=== PATIENT | female | born 1955 | race Caucasian/White ===

== ENCOUNTER 2021-05-22 06:47 | Inpatient (IN) | payer OTHER ==
[2021-05-22 07:01] LABS: Hemoglobin 14.9 g/dL (12.0-16.0); Mean Corpuscular HGB CONC 33.5 g/dL (32.0-36.0); Mean Corpuscular Hemoglobin 32.3 pg (27.0-31.0); Mean Corpuscular Volume 96.3 fL (78.0-98.0); Mean Platelet Volume 10.1 fL (7.4-10.4); Platelet Count 274 thou/uL (130-400); RBC Distribution Width 12.7 % (11.5-14.5); Red Blood Cell (RBC) Count 4.61 mill/uL (4.20-5.40); White Blood Cell (WBC) Count 25.8 thou/uL (4.8-10.8)
[2021-05-22 07:22] LABS: ALT (SGPT) 105 U/L (8-55); AST (SGOT) 134 U/L (5-34); Albumin 3.5 g/dL (3.4-4.8); Alkaline Phosphatase 119 U/L (40-110); Anion Gap 22 mmol/L (10-20); BUN (Urea Nitrogen) 69 mg/dL (9.8-20.1); Bilirubin, Total 1.2 mg/dL (0.2-1.2); Calc. Creatinine Clearance 0 mL/min (70-130); Calcium 8.7 mg/dL (7.8-10.44); Carbon Dioxide 20 mmol/L (23-31); Chloride 99 mmol/L (98-107); Globulin 3.8 g/dL (2.4-3.5); Glucose 115 mg/dL (80-115); Protein, Total 7.3 g/dL (5.8-8.1); Sodium 136 mmol/L (136-145)
[2021-05-22 07:22] LABS: Actual Bicarbonate (HCO3a) 18.2 mEq/L (22-28); Analyzer IN Cardio ER; Base Excess (BEa) -10.9 mEq/L (-2.0 to +3.0); CO2 Tension 52.5 mmHg (35.0-45.0); Calcium, Ionized (arterial) 1.13 mmol/L (1.12-1.30); Carboxyhemoglobin (COHb) 1.3 gm% (0.0-3.0); Hemoglobin (Hb) 15.3 g/dL (12.0-16.0); O2 Tension (PaO2), arterial 66.2 mmHg (> 80.0); Potassium - ABG Lab 4.07 mmol/L (3.70-5.30)
[2021-05-22 07:23] LABS: pH, Arterial 7.16 (7.35-7.45)
[2021-05-22 07:24] LABS: ALV-art Gradient 438.575 mmHg (0-20); Puncture Site RBA
[2021-05-22 07:27] LABS: INR-International Normal Ratio 1.2; PTT 26.8 sec (22.9-36.1); Prothrombin Time 14.8 sec (12.0-14.7)
[2021-05-22 07:32] LABS: Band 25 % (5-11); Lymphocytes 6 % (21-51); MDiff Complete? YES; Monocytes 5 % (0-10); Myelocyte 1 % (0-0); Neutrophil 62 % (42-75); Platelet Morphology Comment Appears Adequate; Polychromasia SLIGHT = 2-3 cells (100X) (0-2/hpf); Reactive Lymphocytes 1 % (0-10)
[2021-05-22] MEDS ORDERED: Vancomycin 1 GM/200 ML BAG ONE (07:40)
[2021-05-22] MEDS ORDERED: Cefepime 2 GM VIAL ONE ×2 (07:41→20:31)
[2021-05-22 07:42] LABS: CKMB 5.6 ng/mL (0-6.6)
[2021-05-22] MEDS ORDERED: Fentanyl CADD 100 ML IV SCH (07:45)
[2021-05-22] MEDS ORDERED: Norepinephrine 8 MG/0.9% NS 250 ML ONE (07:49)
[2021-05-22 07:56] LABS: SARS-CoV-2 NAA Rapid Test Not Detected (NotDetected)
[2021-05-22 08:45] LABS: Bacteria/HPF None Seen HPF (None Seen); Bilirubin Negative (Negative); Blood, Urine 1+ (Negative); Clarity Turbid (Clear); Glucose, Urine (Dipstick) Normal (Negative); Ketone, Urine Trace mg/dL (Negative); Leukocyte Negative Leu/uL (Negative); Nitrite Negative (Negative); Protein, Urine (Dipstick) 30 mg/dL (Neg-Trace); RBC/HPF 0-3 HPF (0-3); Specific Gravity, Urine 1.023 (1.002-1.036); Squamous Epithelial 0-3 HPF (0-3); Urobilinogen Normal mg/dL (Less than 2); WBC/HPF 0-3 HPF (0-3)
[2021-05-22] MEDS ORDERED: Naloxone HCl 0.4 mg/ml Vial ONE (09:35)
[2021-05-22] MEDS ORDERED: Naloxone HCl 2 mg/2 ml Syringe ONE (09:57)
[2021-05-22] MEDS ORDERED: Ventilator Sedation Protocol 1 EACH FS SCH (20:11)
[2021-05-22] MEDS ORDERED: Ondansetron PF 4 MG/2 ML Vial IVP PRN (20:11)
[2021-05-22] MEDS ORDERED: Fentanyl BOLUS 250 ML IVPB PRN (20:30)
[2021-05-22] MEDS ORDERED: Propofol BOLUS 1,000 MG/100 ML VIAL IV PRN (20:30)
[2021-05-22] MEDS ORDERED: DISCONTINUE PREVIOUS NARCOTIC PAIN MEDICATIONS AND BENZODIAZEPINES FS SCH (20:30)
[2021-05-22] MEDS ORDERED: Propofol 1,000 MG/100 ML VIAL IV ONE (20:33)
[2021-05-22] MEDS: Propofol 1,000 MG/100 ML VIAL IV PRN (21:12)
[2021-05-22] MEDS: Lactated Ringer's 1,000 ML IV SCH (21:25)
[2021-05-22] MEDS ORDERED: Heparin 10,000 UNITS/ 10 ML VIAL ONE (21:26)
[2021-05-22 21:39] LABS: Troponin I 1.491 ng/mL (< 0.028)
[2021-05-22] MEDS ORDERED: [UNRECOGNIZED DRUG - REMARK] IVPB PRN (22:43)
[2021-05-22] MEDS: Fentanyl CADD 100 ML IV SCH (22:58)
[2021-05-22] MEDS: Heparin 5,000 UNITS/ML VIAL SC SCH (23:16)
[2021-05-23 01:26] LABS: Vancomycin, Random 9.8 ug/mL (See Comment)
[2021-05-23 01:38] LABS: Critical Call Chem Troponin I RESULT DECREASING; Troponin I 1.365 ng/mL (< 0.028)
[2021-05-23] MEDS ORDERED: Sodium Chloride 0.9% 15 ML NEB ONE (01:43)
[2021-05-23] MEDS ORDERED: VANCOMYCIN 1.25 GM/250 ML BAG 1.25 GM in Premix Bag 1 BAG IVPB SCH (02:00)
[2021-05-23] MEDS: Norepinephrine 8 MG/0.9% NS 250 ML IVPB SCH ×2 (03:17→16:07)
[2021-05-23 06:10] LABS: Band 30 % (5-11); Eosinophils 1 % (0-10); Lymphocytes 3 % (21-51); MDiff Complete? YES; Mean Corpuscular HGB CONC 31.7 g/dL (32.0-36.0); Mean Corpuscular Hemoglobin 30.4 pg (27.0-31.0); Mean Corpuscular Volume 95.9 fL (78.0-98.0); Mean Platelet Volume 10.4 fL (7.4-10.4); Monocytes 1 % (0-10); Neutrophil 65 % (42-75); Platelet Count 193 thou/uL (130-400); Platelet Morphology Comment Appears Adequate; RBC Distribution Width 12.8 % (11.5-14.5); Red Blood Cell (RBC) Count 3.96 mill/uL (4.20-5.40); White Blood Cell (WBC) Count 25.5 thou/uL (4.8-10.8)
[2021-05-23 06:12] LABS: Anion Gap 16 mmol/L (10-20); BUN (Urea Nitrogen) 65 mg/dL (9.8-20.1); Calc. Creatinine Clearance 31 mL/min (70-130); Calcium 8.4 mg/dL (7.8-10.44); Carbon Dioxide 20 mmol/L (23-31); Chloride 107 mmol/L (98-107); Glucose 136 mg/dL (80-115); Potassium 4.1 mmol/L (3.5-5.1); Sodium 139 mmol/L (136-145)
[2021-05-23] MEDS ORDERED: Fentanyl CADD 100 ML ONE (06:29)
[2021-05-23 06:32] LABS: Critical Call Chem Troponin I RESULT DECREASING; Troponin I 1.361 ng/mL (< 0.028)
[2021-05-23] MEDS: Lactated Ringer's 1,000 ML IV SCH ×3 (07:07→18:28)
[2021-05-23] MEDS: Cefepime 1 GM in Sodium Chloride 0.9% 100 ML IVPB SCH (09:05)
[2021-05-23] MEDS: Heparin 5,000 UNITS/ML VIAL SC SCH ×2 (09:06→21:06)
[2021-05-23] MEDS: Propofol 1,000 MG/100 ML VIAL IV PRN (10:42)
[2021-05-23 13:41] LABS: Actual Bicarbonate (HCO3a) 21.6 mEq/L (22-28); CO2 Tension 41.6 mmHg (35.0-45.0); Calcium, Ionized (arterial) 1.17 mmol/L (1.12-1.30); Carboxyhemoglobin (COHb) 0.3 gm% (0.0-3.0); Hemoglobin (Hb) 12.7 g/dL (12.0-16.0); O2 Tension (PaO2), arterial 85.4 mmHg (> 80.0); Potassium - ABG Lab 3.35 mmol/L (3.70-5.30); pH, Arterial 7.33 (7.35-7.45)
[2021-05-23 13:43] LABS: Puncture Site RRA
[2021-05-23] MEDS ORDERED: Sodium Chloride 0.9% 1,000 ML IV SCH (14:15)
[2021-05-23] MEDS: Lorazepam 2 MG/ML VIAL SLOW IVP PRN (15:03)
[2021-05-23] MEDS ORDERED: Aspirin Chewable 81 MG TAB PO SCH (19:00)
[2021-05-23] MEDS ORDERED: Atorvastatin Calcium 40 MG TAB PO SCH (19:00)
[2021-05-23] MEDS ORDERED: Famotidine/PF 20 mg/2ml Vial SLOW IVP SCH (21:00)
[2021-05-24 01:38] LABS: Vancomycin, Random 14.2 ug/mL (See Comment)
[2021-05-24] MEDS ORDERED: Vancomycin 1 GM in Premix Bag 1 BAG IVPB SCH ×2 (02:00→03:00)
[2021-05-24] MEDS: Lactated Ringer's 1,000 ML IV SCH ×3 (02:34→11:34)
[2021-05-24] MEDS ORDERED: Fentanyl CADD 0 ML ONE (05:43)
[2021-05-24 06:44] LABS: Band 20 % (5-11); Hemoglobin 11.8 g/dL (12.0-16.0); Lymphocytes 4 % (21-51); MDiff Complete? YES; Mean Corpuscular HGB CONC 33.4 g/dL (32.0-36.0); Mean Corpuscular Hemoglobin 31.8 pg (27.0-31.0); Mean Corpuscular Volume 95.2 fL (78.0-98.0); Mean Platelet Volume 10.2 fL (7.4-10.4); Metamyelocyte 3 % (0-0); Monocytes 3 % (0-10); Neutrophil 70 % (42-75); Platelet Count 141 thou/uL (130-400); Platelet Morphology Comment Appears Adequate; RBC Distribution Width 12.6 % (11.5-14.5); RBC Morphology Normal; Red Blood Cell (RBC) Count 3.72 mill/uL (4.20-5.40); White Blood Cell (WBC) Count 19.7 thou/uL (4.8-10.8)
[2021-05-24 06:47] LABS: Anion Gap 11 mmol/L (10-20); BUN (Urea Nitrogen) 44 mg/dL (9.8-20.1); Calc. Creatinine Clearance 78 mL/min (70-130); Calcium 8.1 mg/dL (7.8-10.44); Carbon Dioxide 20 mmol/L (23-31); Chloride 112 mmol/L (98-107); Glucose 140 mg/dL (80-115); Potassium 3.7 mmol/L (3.5-5.1); Sodium 139 mmol/L (136-145)
[2021-05-24 07:19] LABS: Actual Bicarbonate (HCO3a) 21.5 mEq/L (22-28); Base Excess (BEa) -3.1 mEq/L (-2.0 to +3.0); Calcium, Ionized (arterial) 1.15 mmol/L (1.12-1.30); Carboxyhemoglobin (COHb) 0.1 gm% (0.0-3.0); Hemoglobin (Hb) 13.8 g/dL (12.0-16.0); O2 Tension (PaO2), arterial 84.3 mmHg (> 80.0); Potassium - ABG Lab 3.55 mmol/L (3.70-5.30); pH, Arterial 7.38 (7.35-7.45)
[2021-05-24 07:32] LABS: Puncture Site RRA
[2021-05-24] MEDS: Cefepime 1 GM in Sodium Chloride 0.9% 100 ML IVPB SCH (08:40)
[2021-05-24] MEDS: Heparin 5,000 UNITS/ML VIAL SC SCH ×2 (08:41→20:43)
[2021-05-24] MEDS: Aspirin Chewable 81 MG TAB PO SCH (08:42)
[2021-05-24] MEDS: Fentanyl CADD 100 ML IV SCH (10:18)
[2021-05-24] MEDS ORDERED: Fentanyl CADD 100 ML ONE (10:50)
[2021-05-24] MEDS: Sodium Chloride 0.9% 1,000 ML IV SCH (15:01)
[2021-05-24] MEDS: Atorvastatin Calcium 40 MG TAB PO SCH (20:42)
[2021-05-24] MEDS: Famotidine/PF 20 mg/2ml Vial SLOW IVP SCH (20:43)
[2021-05-24] MEDS ORDERED: Haloperidol Lactate 5 MG/ML VIAL IM SCH (22:00)
[2021-05-25 01:38] LABS: Vancomycin, Random 14.9 ug/mL (See Comment)
[2021-05-25] MEDS ORDERED: Fentanyl CADD 100 ML ONE ×3 (01:53→23:11)
[2021-05-25] MEDS: Fentanyl CADD 100 ML IV SCH ×2 (02:03→23:18)
[2021-05-25] MEDS: VANCOMYCIN 1.25 GM/250 ML BAG 1.25 GM in Premix Bag 1 BAG IVPB SCH (02:03)
[2021-05-25 04:32] LABS: Anion Gap 13 mmol/L (10-20); BUN (Urea Nitrogen) 31 mg/dL (9.8-20.1); Calc. Creatinine Clearance 118 mL/min (70-130); Calcium 7.9 mg/dL (7.8-10.44); Carbon Dioxide 20 mmol/L (23-31); Chloride 113 mmol/L (98-107); Glucose 125 mg/dL (80-115); Potassium 3.5 mmol/L (3.5-5.1); Sodium 142 mmol/L (136-145)
[2021-05-25] MEDS: Sodium Chloride 0.9% 1,000 ML IV SCH ×2 (04:38→19:32)
[2021-05-25 04:41] LABS: Band 25 % (5-11); Eosinophils 2 % (0-10); Hemoglobin 12.3 g/dL (12.0-16.0); Lymphocytes 3 % (21-51); MDiff Complete? YES; Mean Corpuscular HGB CONC 33.8 g/dL (32.0-36.0); Mean Corpuscular Hemoglobin 32.3 pg (27.0-31.0); Mean Corpuscular Volume 95.5 fL (78.0-98.0); Mean Platelet Volume 10.2 fL (7.4-10.4); Monocytes 6 % (0-10); Neutrophil 64 % (42-75); Platelet Count 152 thou/uL (130-400); Platelet Morphology Comment Appears Adequate; RBC Distribution Width 12.6 % (11.5-14.5); RBC Morphology Normal; Red Blood Cell (RBC) Count 3.82 mill/uL (4.20-5.40); White Blood Cell (WBC) Count 21.6 thou/uL (4.8-10.8)
[2021-05-25] MEDS: Lorazepam 2 MG/ML VIAL SLOW IVP PRN ×3 (07:36→19:26)
[2021-05-25 08:37] LABS: Actual Bicarbonate (HCO3a) 20.8 mEq/L (22-28); Base Excess (BEa) -2.6 mEq/L (-2.0 to +3.0); Calcium, Ionized (arterial) 1.11 mmol/L (1.12-1.30); Carboxyhemoglobin (COHb) 0.2 gm% (0.0-3.0); Hemoglobin (Hb) 13.3 g/dL (12.0-16.0); O2 Tension (PaO2), arterial 76.2 mmHg (> 80.0); Potassium - ABG Lab 3.69 mmol/L (3.70-5.30); pH, Arterial 7.43 (7.35-7.45)
[2021-05-25] MEDS: Aspirin Chewable 81 MG TAB PO SCH (08:49)
[2021-05-25] MEDS: Heparin 5,000 UNITS/ML VIAL SC SCH ×2 (08:50→19:26)
[2021-05-25] MEDS: Cefepime 1 GM in Sodium Chloride 0.9% 100 ML IVPB SCH (08:50)
[2021-05-25 08:58] LABS: Puncture Site LRA
[2021-05-25] MEDS: Famotidine/PF 20 mg/2ml Vial SLOW IVP SCH (19:26)
[2021-05-25] MEDS: Atorvastatin Calcium 40 MG TAB PO SCH (19:27)
[2021-05-26] MEDS: VANCOMYCIN 1.25 GM/250 ML BAG 1.25 GM in Premix Bag 1 BAG IVPB SCH (01:31)
[2021-05-26 05:05] LABS: Band 20 % (5-11); Eosinophils 1 % (0-10); Hemoglobin 12.3 g/dL (12.0-16.0); Lymphocytes 5 % (21-51); MDiff Complete? YES; Mean Corpuscular HGB CONC 33.7 g/dL (32.0-36.0); Mean Corpuscular Hemoglobin 32.2 pg (27.0-31.0); Mean Corpuscular Volume 95.4 fL (78.0-98.0); Mean Platelet Volume 10.2 fL (7.4-10.4); Metamyelocyte 1 % (0-0); Monocytes 12 % (0-10); Myelocyte 2 % (0-0); Neutrophil 58 % (42-75); Platelet Count 182 thou/uL (130-400); Platelet Morphology Comment Appears Adequate; RBC Distribution Width 12.6 % (11.5-14.5); RBC Morphology Normal; Reactive Lymphocytes 1 % (0-10); Red Blood Cell (RBC) Count 3.82 mill/uL (4.20-5.40); White Blood Cell (WBC) Count 18.6 thou/uL (4.8-10.8)
[2021-05-26 05:55] LABS: Anion Gap 11 mmol/L (10-20); BUN (Urea Nitrogen) 23 mg/dL (9.8-20.1); Calc. Creatinine Clearance 135 mL/min (70-130); Calcium 7.9 mg/dL (7.8-10.44); Carbon Dioxide 21 mmol/L (23-31); Chloride 114 mmol/L (98-107); Glucose 118 mg/dL (80-115); Sodium 143 mmol/L (136-145)
[2021-05-26] MEDS ORDERED: Electrolyte Replacement Protocol FS PRN (06:30)
[2021-05-26] MEDS ORDERED: Potassium Chloride 40 MEQ in Sodium Chloride 0.9% 250 ML 250 ML IVPB SCH ×3 (07:30→15:00)
[2021-05-26] MEDS ORDERED: Potassium Chloride 20 MEQ in Premix Bag 1 BAG IVPB SCH (08:15)
[2021-05-26] MEDS ORDERED: Fentanyl CADD 100 ML ONE ×2 (08:15→16:31)
[2021-05-26] MEDS ORDERED: Potassium Chloride 20 MEQ TAB PO SCH (08:15)
[2021-05-26] MEDS: Fentanyl CADD 100 ML IV SCH ×2 (08:19→16:48)
[2021-05-26] MEDS: Heparin 5,000 UNITS/ML VIAL SC SCH ×2 (08:20→19:39)
[2021-05-26] MEDS: Aspirin Chewable 81 MG TAB PO SCH (08:20)
[2021-05-26] MEDS: Cefepime 1 GM in Sodium Chloride 0.9% 100 ML IVPB SCH (08:20)
[2021-05-26 08:23] LABS: Actual Bicarbonate (HCO3a) 20.1 mEq/L (22-28); Base Excess (BEa) -3.3 mEq/L (-2.0 to +3.0); CO2 Tension 31.2 mmHg (35.0-45.0); Calcium, Ionized (arterial) 1.08 mmol/L (1.12-1.30); Carboxyhemoglobin (COHb) 0.4 gm% (0.0-3.0); Hemoglobin (Hb) 12.9 g/dL (12.0-16.0); O2 Tension (PaO2), arterial 64.9 mmHg (> 80.0); Potassium - ABG Lab 3.35 mmol/L (3.70-5.30); pH, Arterial 7.43 (7.35-7.45)
[2021-05-26 08:50] LABS: Puncture Site LRA
[2021-05-26] MEDS: Lorazepam 2 MG/ML VIAL SLOW IVP PRN ×5 (10:02→19:38)
[2021-05-26] MEDS: Sodium Chloride 0.9% 1,000 ML IV SCH ×2 (10:30→23:41)
[2021-05-26 12:36] LABS: Potassium 3.5 mmol/L (3.5-5.1)
[2021-05-26] MEDS: Famotidine/PF 20 mg/2ml Vial SLOW IVP SCH (19:38)
[2021-05-26] MEDS: Atorvastatin Calcium 40 MG TAB PO SCH (19:39)
[2021-05-27] MEDS ORDERED: Fentanyl CADD 100 ML ONE ×3 (01:06→19:31)
[2021-05-27] MEDS: Lorazepam 2 MG/ML VIAL SLOW IVP PRN ×5 (01:12→23:21)
[2021-05-27] MEDS: VANCOMYCIN 1.25 GM/250 ML BAG 1.25 GM in Premix Bag 1 BAG IVPB SCH (01:12)
[2021-05-27] MEDS: Fentanyl CADD 100 ML IV SCH ×3 (01:13→19:46)
[2021-05-27 01:43] LABS: Vancomycin, Trough 14.4 ug/mL
[2021-05-27 04:19] LABS: Band 6 % (5-11); Hemoglobin 11.9 g/dL (12.0-16.0); Lymphocytes 10 % (21-51); MDiff Complete? YES; Mean Corpuscular HGB CONC 32.8 g/dL (32.0-36.0); Mean Corpuscular Hemoglobin 31.3 pg (27.0-31.0); Mean Corpuscular Volume 95.5 fL (78.0-98.0); Monocytes 14 % (0-10); Neutrophil 70 % (42-75); Platelet Count 194 thou/uL (130-400); Platelet Morphology Comment Appears Adequate; RBC Distribution Width 12.7 % (11.5-14.5); RBC Morphology Normal; Red Blood Cell (RBC) Count 3.81 mill/uL (4.20-5.40); White Blood Cell (WBC) Count 16.5 thou/uL (4.8-10.8)
[2021-05-27 04:29] LABS: Anion Gap 12 mmol/L (10-20); BUN (Urea Nitrogen) 20 mg/dL (9.8-20.1); Calc. Creatinine Clearance 150 mL/min (70-130); Carbon Dioxide 19 mmol/L (23-31); Chloride 118 mmol/L (98-107); Glucose 123 mg/dL (80-115); Potassium 3.4 mmol/L (3.5-5.1); Sodium 146 mmol/L (136-145)
[2021-05-27] MEDS ORDERED: Potassium Chloride 40 MEQ in Sodium Chloride 0.9% 250 ML 250 ML IVPB SCH (08:00)
[2021-05-27 08:23] LABS: Actual Bicarbonate (HCO3a) 20.4 mEq/L (22-28); Base Excess (BEa) -4.1 mEq/L (-2.0 to +3.0); CO2 Tension 35.7 mmHg (35.0-45.0); Calcium, Ionized (arterial) 1.13 mmol/L (1.12-1.30); Carboxyhemoglobin (COHb) 0.8 gm% (0.0-3.0); Hemoglobin (Hb) 12.8 g/dL (12.0-16.0); O2 Tension (PaO2), arterial 78.1 mmHg (> 80.0); Potassium - ABG Lab 3.38 mmol/L (3.70-5.30); pH, Arterial 7.38 (7.35-7.45)
[2021-05-27 08:24] LABS: ALV-art Gradient 162.475 mmHg (0-20); Puncture Site RRA
[2021-05-27] MEDS: Aspirin Chewable 81 MG TAB PO SCH (09:26)
[2021-05-27] MEDS: Cefepime 1 GM in Sodium Chloride 0.9% 100 ML IVPB SCH (09:26)
[2021-05-27] MEDS: Heparin 5,000 UNITS/ML VIAL SC SCH ×2 (09:27→19:49)
[2021-05-27] MEDS: Sodium Chloride 0.9% 1,000 ML IV SCH (12:14)
[2021-05-27 12:55] LABS: Potassium 3.9 mmol/L (3.5-5.1)
[2021-05-27] MEDS: Metoclopramide HCl 10 MG/2 ML VIAL IVP SCH ×2 (12:58→20:22)
[2021-05-27] MEDS: Morphine 2 MG/ML VIAL SLOW IVP PRN (14:58)
[2021-05-27] MEDS: Atorvastatin Calcium 40 MG TAB PO SCH (19:48)
[2021-05-27] MEDS ORDERED: Famotidine/PF 20 mg/2ml Vial SLOW IVP SCH (21:00)
[2021-05-28] MEDS: VANCOMYCIN 1.25 GM/250 ML BAG 1.25 GM in Premix Bag 1 BAG IVPB SCH (02:34)
[2021-05-28 04:03] LABS: Hemoglobin 11.7 g/dL (12.0-16.0); Mean Corpuscular Hemoglobin 31.5 pg (27.0-31.0); Mean Corpuscular Volume 95.6 fL (78.0-98.0); Mean Platelet Volume 9.6 fL (7.4-10.4); Platelet Count 191 thou/uL (130-400); RBC Distribution Width 12.7 % (11.5-14.5); Red Blood Cell (RBC) Count 3.71 mill/uL (4.20-5.40); White Blood Cell (WBC) Count 17.5 thou/uL (4.8-10.8)
[2021-05-28 04:09] LABS: Anion Gap 13 mmol/L (10-20); BUN (Urea Nitrogen) 17 mg/dL (9.8-20.1); Calc. Creatinine Clearance 152 mL/min (70-130); Calcium 7.7 mg/dL (7.8-10.44); Carbon Dioxide 18 mmol/L (23-31); Chloride 117 mmol/L (98-107); Glucose 127 mg/dL (80-115); Potassium 3.5 mmol/L (3.5-5.1); Sodium 144 mmol/L (136-145)
[2021-05-28] MEDS: Sodium Chloride 0.9% 1,000 ML IV SCH ×2 (04:13→19:15)
[2021-05-28] MEDS ORDERED: Fentanyl CADD 100 ML ONE ×2 (04:15→11:41)
[2021-05-28] MEDS: Fentanyl CADD 100 ML IV SCH ×2 (04:22→11:46)
[2021-05-28 04:31] LABS: Band 5 % (5-11); Lymphocytes 6 % (21-51); MDiff Complete? YES; Metamyelocyte 2 % (0-0); Monocytes 3 % (0-10); Myelocyte 3 % (0-0); Neutrophil 80 % (42-75); Platelet Morphology Comment Appears Adequate; RBC Morphology Normal; Reactive Lymphocytes 1 % (0-10)
[2021-05-28] MEDS: Metoclopramide HCl 10 MG/2 ML VIAL IVP SCH ×4 (05:26→20:21)
[2021-05-28 07:22] LABS: Actual Bicarbonate (HCO3a) 20.4 mEq/L (22-28); Base Excess (BEa) -3.7 mEq/L (-2.0 to +3.0); CO2 Tension 33.7 mmHg (35.0-45.0); Calcium, Ionized (arterial) 1.12 mmol/L (1.12-1.30); Carboxyhemoglobin (COHb) 0.4 gm% (0.0-3.0); Hemoglobin (Hb) 11.9 g/dL (12.0-16.0); O2 Tension (PaO2), arterial 66.6 mmHg (> 80.0); Potassium - ABG Lab 3.12 mmol/L (3.70-5.30)
[2021-05-28 07:23] LABS: ALV-art Gradient 176.475 mmHg (0-20); Puncture Site RRA
[2021-05-28] MEDS ORDERED: Potassium Chloride 40 MEQ in Sodium Chloride 0.9% 250 ML 250 ML IVPB SCH (08:00)
[2021-05-28] MEDS ORDERED: Furosemide 40 MG/4 ML VIAL SLOW IVP SCH (08:45)
[2021-05-28] MEDS: Aspirin Chewable 81 MG TAB PO SCH (09:04)
[2021-05-28] MEDS: Cefepime 1 GM in Sodium Chloride 0.9% 100 ML IVPB SCH (09:04)
[2021-05-28] MEDS: Heparin 5,000 UNITS/ML VIAL SC SCH ×2 (09:06→19:15)
[2021-05-28] MEDS: Famotidine 20 MG TAB PER TUBE SCH ×2 (09:06→19:17)
[2021-05-28] MEDS: Morphine 2 MG/ML VIAL SLOW IVP PRN ×4 (09:43→23:55)
[2021-05-28] MEDS: Lorazepam 2 MG/ML VIAL SLOW IVP PRN ×6 (09:44→23:56)
[2021-05-28] MEDS ORDERED: Vecuronium 10 MG VIAL ONE (14:15)
[2021-05-28 14:23] LABS: Potassium 3.8 mmol/L (3.5-5.1)
[2021-05-28] MEDS ORDERED: Vecuronium 10 MG VIAL IV SCH (15:30)
[2021-05-28] MEDS: fentaNYL 50 mcg/hour Patch TD SCH (16:45)
[2021-05-28] MEDS ORDERED: Potassium Chloride 20 MEQ TAB PO SCH (18:00)
[2021-05-28] MEDS: Atorvastatin Calcium 40 MG TAB PO SCH (19:17)
[2021-05-28] MEDS: Haloperidol Lactate 5 MG/ML VIAL IM SCH (20:21)
[2021-05-29] MEDS: Morphine 2 MG/ML VIAL SLOW IVP PRN ×2 (01:05→08:09)
[2021-05-29] MEDS: Lorazepam 2 MG/ML VIAL SLOW IVP PRN ×3 (01:05→20:34)
[2021-05-29] MEDS: VANCOMYCIN 1.25 GM/250 ML BAG 1.25 GM in Premix Bag 1 BAG IVPB SCH (01:21)
[2021-05-29 01:45] LABS: Vancomycin, Trough 15.6 ug/mL
[2021-05-29 04:19] LABS: Anion Gap 12 mmol/L (10-20); BUN (Urea Nitrogen) 15 mg/dL (9.8-20.1); Calc. Creatinine Clearance 144 mL/min (70-130); Calcium 7.5 mg/dL (7.8-10.44); Carbon Dioxide 20 mmol/L (23-31); Chloride 115 mmol/L (98-107); Glucose 106 mg/dL (80-115); Potassium 3.3 mmol/L (3.5-5.1); Sodium 144 mmol/L (136-145)
[2021-05-29] MEDS: Haloperidol Lactate 5 MG/ML VIAL IM SCH ×3 (04:42→20:10)
[2021-05-29 04:44] LABS: Band 14 % (5-11); Eosinophils 4 % (0-10); Lymphocytes 24 % (21-51); MDiff Complete? YES; Mean Corpuscular HGB CONC 32.3 g/dL (32.0-36.0); Mean Corpuscular Hemoglobin 30.5 pg (27.0-31.0); Mean Corpuscular Volume 94.5 fL (78.0-98.0); Mean Platelet Volume 9.9 fL (7.4-10.4); Monocytes 1 % (0-10); Neutrophil 57 % (42-75); Platelet Count 219 thou/uL (130-400); RBC Distribution Width 12.5 % (11.5-14.5); Red Blood Cell (RBC) Count 3.61 mill/uL (4.20-5.40); White Blood Cell (WBC) Count 17.5 thou/uL (4.8-10.8)
[2021-05-29] MEDS ORDERED: Furosemide 40 MG/4 ML VIAL SLOW IVP SCH (06:00)
[2021-05-29] MEDS ORDERED: Potassium Chloride 40 MEQ in Sodium Chloride 0.9% 250 ML 250 ML IVPB SCH (06:30)
[2021-05-29 07:26] LABS: Actual Bicarbonate (HCO3a) 21.5 mEq/L (22-28); Base Excess (BEa) -1.2 mEq/L (-2.0 to +3.0); CO2 Tension 29.7 mmHg (35.0-45.0); Calcium, Ionized (arterial) 1.06 mmol/L (1.12-1.30); Carboxyhemoglobin (COHb) 0.3 gm% (0.0-3.0); Hemoglobin (Hb) 11.5 g/dL (12.0-16.0); O2 Tension (PaO2), arterial 62.9 mmHg (> 80.0); Potassium - ABG Lab 2.92 mmol/L (3.70-5.30); pH, Arterial 7.48 (7.35-7.45)
[2021-05-29 07:30] LABS: Puncture Site RRA
[2021-05-29 07:31] LABS: ALV-art Gradient 185.175 mmHg (0-20)
[2021-05-29] MEDS: Cefepime 1 GM in Sodium Chloride 0.9% 100 ML IVPB SCH (08:38)
[2021-05-29] MEDS: Heparin 5,000 UNITS/ML VIAL SC SCH ×2 (08:38→20:10)
[2021-05-29] MEDS: Acetaminophen 325 MG TAB PO PRN ×2 (08:38→20:10)
[2021-05-29] MEDS: Famotidine 20 MG TAB PER TUBE SCH ×2 (08:39→20:10)
[2021-05-29] MEDS: Aspirin Chewable 81 MG TAB PO SCH (08:39)
[2021-05-29] MEDS: Sodium Chloride 0.9% 1,000 ML IV SCH ×2 (10:26→23:26)
[2021-05-29] MEDS: Furosemide 20 MG/2 ML VIAL SLOW IVP SCH (13:55)
[2021-05-29] MEDS: Metoclopramide HCl 10 MG/2 ML VIAL IVP SCH ×2 (13:55→20:10)
[2021-05-29] MEDS: Linezolid 600 MG in Premix Bag 1 BAG IVPB SCH (17:25)
[2021-05-29] MEDS ORDERED: Potassium Bicarbonate/Cit Ac 20 MEQ TAB PO SCH (18:00)
[2021-05-29] MEDS ORDERED: Potassium Chloride 20 MEQ TAB PO SCH (18:00)
[2021-05-29] MEDS: Atorvastatin Calcium 40 MG TAB PO SCH (20:10)
[2021-05-30] LABS: SARS-CoV-2 PCR by NAA Not Detected (NotDetected)
[2021-05-30] MEDS: Haloperidol Lactate 5 MG/ML VIAL IM SCH ×3 (03:18→19:50)
[2021-05-30 03:33] LABS: Hemoglobin 10.8 g/dL (12.0-16.0); Mean Corpuscular HGB CONC 33.6 g/dL (32.0-36.0); Mean Corpuscular Volume 95.3 fL (78.0-98.0); Platelet Count 280 thou/uL (130-400); RBC Distribution Width 12.8 % (11.5-14.5); Red Blood Cell (RBC) Count 3.37 mill/uL (4.20-5.40); White Blood Cell (WBC) Count 17.4 thou/uL (4.8-10.8)
[2021-05-30 03:47] LABS: Anion Gap 12 mmol/L (10-20); BUN (Urea Nitrogen) 17 mg/dL (9.8-20.1); Calc. Creatinine Clearance 130 mL/min (70-130); Calcium 7.3 mg/dL (7.8-10.44); Carbon Dioxide 24 mmol/L (23-31); Chloride 114 mmol/L (98-107); Glucose 93 mg/dL (80-115); Potassium 3.5 mmol/L (3.5-5.1); Sodium 146 mmol/L (136-145)
[2021-05-30 04:01] LABS: Band 3 % (5-11); Eosinophils 1 % (0-10); Lymphocytes 11 % (21-51); MDiff Complete? YES; Monocytes 5 % (0-10); Myelocyte 1 % (0-0); Neutrophil 79 % (42-75)
[2021-05-30] MEDS: Linezolid 600 MG in Premix Bag 1 BAG IVPB SCH (04:14)
[2021-05-30] MEDS: Sodium Chloride 0.9% 1,000 ML IV SCH (04:14)
[2021-05-30] MEDS: Morphine 2 MG/ML VIAL SLOW IVP PRN ×3 (04:14→18:49)
[2021-05-30] MEDS: Acetaminophen 325 MG TAB PO PRN ×2 (04:46→19:53)
[2021-05-30] MEDS: Furosemide 20 MG/2 ML VIAL SLOW IVP SCH ×2 (05:14→14:04)
[2021-05-30] MEDS: Metoclopramide HCl 10 MG/2 ML VIAL IVP SCH ×3 (05:15→21:56)
[2021-05-30] MEDS: Potassium Chloride 20 MEQ in Premix Bag 1 BAG IVPB SCH ×2 (05:19→07:04)
[2021-05-30 07:42] LABS: Actual Bicarbonate (HCO3a) 22.5 mEq/L (22-28); Base Excess (BEa) -0.2 mEq/L (-2.0 to +3.0); Calcium, Ionized (arterial) 1.02 mmol/L (1.12-1.30); Carboxyhemoglobin (COHb) 0.3 gm% (0.0-3.0); Hemoglobin (Hb) 10.1 g/dL (12.0-16.0); O2 Tension (PaO2), arterial 69.8 mmHg (> 80.0); pH, Arterial 7.49 (7.35-7.45)
[2021-05-30 07:46] LABS: Puncture Site RRA
[2021-05-30] MEDS: Aspirin Chewable 81 MG TAB PO SCH (09:15)
[2021-05-30] MEDS: Heparin 5,000 UNITS/ML VIAL SC SCH ×2 (09:15→19:52)
[2021-05-30] MEDS: Oxacillin 2 GM in Sodium Chloride 0.9% 100 ML IVPB SCH ×4 (09:15→19:43)
[2021-05-30] MEDS: Famotidine 20 MG TAB PER TUBE SCH ×2 (09:16→19:53)
[2021-05-30] MEDS: Cefepime 1 GM in Sodium Chloride 0.9% 100 ML IVPB SCH (09:30)
[2021-05-30] MEDS: Norepinephrine 8 MG/0.9% NS 250 ML IVPB SCH (12:00)
[2021-05-30] MEDS: Sodium Chloride 0.45% 1,000 ML IV SCH ×2 (18:36→19:49)
[2021-05-30] MEDS: Atorvastatin Calcium 40 MG TAB PO SCH (19:53)
[2021-05-31] MEDS: Oxacillin 2 GM in Sodium Chloride 0.9% 100 ML IVPB SCH ×6 (00:17→20:58)
[2021-05-31] MEDS: Haloperidol Lactate 5 MG/ML VIAL IM SCH ×3 (04:23→20:56)
[2021-05-31 04:37] LABS: Hemoglobin 10.9 g/dL (12.0-16.0); Mean Corpuscular Hemoglobin 31.7 pg (27.0-31.0); Mean Platelet Volume 9.2 fL (7.4-10.4); Platelet Count 366 thou/uL (130-400); RBC Distribution Width 12.8 % (11.5-14.5); Red Blood Cell (RBC) Count 3.43 mill/uL (4.20-5.40); White Blood Cell (WBC) Count 16.5 thou/uL (4.8-10.8)
[2021-05-31 04:44] LABS: ALT (SGPT) 26 U/L (8-55); AST (SGOT) 38 U/L (5-34); Alkaline Phosphatase 130 U/L (40-110); Anion Gap 11 mmol/L (10-20); BUN (Urea Nitrogen) 20 mg/dL (9.8-20.1); Bilirubin, Total 0.7 mg/dL (0.2-1.2); Calc. Creatinine Clearance 115 mL/min (70-130); Calcium 7.5 mg/dL (7.8-10.44); Carbon Dioxide 24 mmol/L (23-31); Chloride 112 mmol/L (98-107); Globulin 3.2 g/dL (2.4-3.5); Glucose 114 mg/dL (80-115); Magnesium 1.3 mg/dL (1.6-2.6); Phosphorus 2.9 mg/dL (2.3-4.7); Potassium 3.4 mmol/L (3.5-5.1); Protein, Total 5.2 g/dL (5.8-8.1); Sodium 144 mmol/L (136-145)
[2021-05-31] MEDS: Metoclopramide HCl 10 MG/2 ML VIAL IVP SCH ×3 (04:57→20:59)
[2021-05-31] MEDS: Furosemide 20 MG/2 ML VIAL SLOW IVP SCH ×2 (04:57→14:49)
[2021-05-31] MEDS ORDERED: Magnesium 2 GM/50 ML 2 GM in Premix Bag 1 BAG IVPB SCH (05:00)
[2021-05-31] MEDS: Potassium Chloride 20 MEQ in Premix Bag 1 BAG IVPB SCH ×2 (05:01→07:14)
[2021-05-31] MEDS: Magnesium 2 GM/50 ML 2 GM in Premix Bag 1 BAG IVPB SCH ×2 (05:01→06:03)
[2021-05-31 05:45] LABS: Band 12 % (5-11); Eosinophils 3 % (0-10); Lymphocytes 17 % (21-51); MDiff Complete? YES; Monocytes 2 % (0-10); Neutrophil 66 % (42-75)
[2021-05-31 07:13] LABS: Actual Bicarbonate (HCO3a) 23.2 mEq/L (22-28); Base Excess (BEa) 0.2 mEq/L (-2.0 to +3.0); Calcium, Ionized (arterial) 1.05 mmol/L (1.12-1.30); Carboxyhemoglobin (COHb) 0.3 gm% (0.0-3.0); Hemoglobin (Hb) 11.2 g/dL (12.0-16.0); O2 Tension (PaO2), arterial 70.6 mmHg (> 80.0); Potassium - ABG Lab 3.37 mmol/L (3.70-5.30); pH, Arterial 7.48 (7.35-7.45)
[2021-05-31 07:17] LABS: Puncture Site RRA
[2021-05-31] MEDS ORDERED: Iopamidol 370 76% 50 ML VIAL FS ONE (08:54)
[2021-05-31] MEDS ORDERED: Iopamidol-370 76% 500 ML 1 ML ONE (08:54)
[2021-05-31] MEDS: Lorazepam 2 MG/ML VIAL SLOW IVP PRN ×2 (09:35→16:35)
[2021-05-31] MEDS: Acetaminophen 325 MG TAB PO PRN (10:07)
[2021-05-31] MEDS: Famotidine 20 MG TAB PER TUBE SCH ×2 (10:07→20:59)
[2021-05-31] MEDS: Aspirin Chewable 81 MG TAB PO SCH (10:08)
[2021-05-31] MEDS: Heparin 5,000 UNITS/ML VIAL SC SCH ×2 (10:08→20:59)
[2021-05-31] MEDS: Morphine 2 MG/ML VIAL SLOW IVP PRN (16:54)
[2021-05-31] MEDS: fentaNYL 50 mcg/hour Patch TD SCH (17:28)
[2021-05-31] MEDS: Norepinephrine 8 MG/0.9% NS 250 ML IVPB SCH (17:43)
[2021-05-31] MEDS: Atorvastatin Calcium 40 MG TAB PO SCH (20:59)
[2021-05-31 23:47] LABS: SARS-CoV-2 NAA Rapid Test Not Detected (NotDetected)
[2021-06-01] MEDS: Oxacillin 2 GM in Sodium Chloride 0.9% 100 ML IVPB SCH ×6 (00:34→20:10)
[2021-06-01] MEDS: Acetaminophen 325 MG TAB PO PRN (01:16)
[2021-06-01 04:26] LABS: #Eosinphils 0.5 thou/uL (0.0-0.7); #Lymphocytes 1.4 thou/uL (1.20-3.40); #Monocytes 0.6 thou/uL (0.11-0.59); #Neutrophils 8.8 thou/uL (1.40-6.50); %Basophils 0.4 % (0.0-1.0); %Eosinophils 4.1 % (0.0-10.0); %Lymphocytes 12.3 % (21.0-51.0); %Monocytes 5.5 % (0.0-10.0); %Neutrophils 77.7 % (42.0-75.0); Hemoglobin 9.4 g/dL (12.0-16.0); Mean Corpuscular HGB CONC 33.6 g/dL (32.0-36.0); Mean Corpuscular Hemoglobin 32.1 pg (27.0-31.0); Mean Corpuscular Volume 95.5 fL (78.0-98.0); Mean Platelet Volume 9.2 fL (7.4-10.4); Platelet Count 297 thou/uL (130-400); RBC Distribution Width 12.9 % (11.5-14.5); Red Blood Cell (RBC) Count 2.92 mill/uL (4.20-5.40); White Blood Cell (WBC) Count 11.4 thou/uL (4.8-10.8)
[2021-06-01 04:35] LABS: ALT (SGPT) 19 U/L (8-55); AST (SGOT) 31 U/L (5-34); Albumin 1.8 g/dL (3.4-4.8); Alkaline Phosphatase 113 U/L (40-110); Anion Gap 11 mmol/L (10-20); BUN (Urea Nitrogen) 19 mg/dL (9.8-20.1); Bilirubin, Total 0.4 mg/dL (0.2-1.2); Calc. Creatinine Clearance 119 mL/min (70-130); Calcium 7.3 mg/dL (7.8-10.44); Carbon Dioxide 25 mmol/L (23-31); Chloride 109 mmol/L (98-107); Globulin 2.9 g/dL (2.4-3.5); Glucose 164 mg/dL (80-115); Magnesium 1.7 mg/dL (1.6-2.6); Potassium 3.1 mmol/L (3.5-5.1); Protein, Total 4.7 g/dL (5.8-8.1); Sodium 142 mmol/L (136-145)
[2021-06-01 04:37] LABS: Hemoglobin 7.4 g/dL (12.0-16.0); Mean Corpuscular HGB CONC 33.6 g/dL (32.0-36.0); Mean Corpuscular Volume 95.3 fL (78.0-98.0); Mean Platelet Volume 9.2 fL (7.4-10.4); Platelet Count 356 thou/uL (130-400); RBC Distribution Width 12.9 % (11.5-14.5); Red Blood Cell (RBC) Count 2.32 mill/uL (4.20-5.40); White Blood Cell (WBC) Count 12.7 thou/uL (4.8-10.8)
[2021-06-01 04:38] LABS: Phosphorus 2.5 mg/dL (2.3-4.7)
[2021-06-01] MEDS ORDERED: Magnesium 2 GM/50 ML 2 GM in Premix Bag 1 BAG IVPB SCH (05:00)
[2021-06-01] MEDS: Haloperidol Lactate 5 MG/ML VIAL IM SCH ×3 (05:00→20:10)
[2021-06-01] MEDS: Metoclopramide HCl 10 MG/2 ML VIAL IVP SCH ×3 (05:00→21:27)
[2021-06-01] MEDS: Potassium Chloride 20 MEQ in Premix Bag 1 BAG IVPB SCH ×2 (05:04→07:18)
[2021-06-01 05:05] LABS: Band 9 % (5-11); Eosinophils 4 % (0-10); Lymphocytes 18 % (21-51); MDiff Complete? YES; Metamyelocyte 1 % (0-0); Monocytes 3 % (0-10); Neutrophil 65 % (42-75)
[2021-06-01] MEDS: Furosemide 20 MG/2 ML VIAL SLOW IVP SCH ×2 (05:10→14:06)
[2021-06-01 07:57] LABS: Actual Bicarbonate (HCO3a) 23.9 mEq/L (22-28); Base Excess (BEa) 1.1 mEq/L (-2.0 to +3.0); CO2 Tension 31.6 mmHg (35.0-45.0); Calcium, Ionized (arterial) 1.09 mmol/L (1.12-1.30); Carboxyhemoglobin (COHb) 0.4 gm% (0.0-3.0); Hemoglobin (Hb) 10.4 g/dL (12.0-16.0); O2 Tension (PaO2), arterial 63.7 mmHg (> 80.0); Potassium - ABG Lab 3.43 mmol/L (3.70-5.30)
[2021-06-01 08:08] LABS: Puncture Site RRA
[2021-06-01] MEDS: Heparin 5,000 UNITS/ML VIAL SC SCH ×2 (08:22→20:10)
[2021-06-01] MEDS: Aspirin Chewable 81 MG TAB PO SCH (08:22)
[2021-06-01] MEDS: Famotidine 20 MG TAB PER TUBE SCH ×2 (08:22→20:11)
[2021-06-01] MEDS ORDERED: Meropenem 2 GM in Admixture Fee 1 EACH IVPB SCH (08:41)
[2021-06-01] MEDS ORDERED: Cefepime 2 GM in Sodium Chloride 0.9% 100 ML IVPB SCH (09:00)
[2021-06-01] MEDS ORDERED: MEROPENEM 1 GM/50 ML 1 GM in Premix Bag 1 BAG IVPB SCH ×2 (09:45→18:00)
[2021-06-01 11:26] LABS: Potassium 3.6 mmol/L (3.5-5.1)
[2021-06-01] MEDS: Albumin 25% 25 GM/100 ML BOT IVPB SCH ×3 (12:49→23:33)
[2021-06-01] MEDS ORDERED: Pantoprazole 40 MG VIAL IVP SCH (13:30)
[2021-06-01] MEDS ORDERED: Sodium Chloride 0.9% (PF) 10 ML VIAL FS PRN (13:30)
[2021-06-01] MEDS ORDERED: Vancomycin 1 GM in Premix Bag 1 BAG IVPB SCH (16:00)
[2021-06-01] MEDS ORDERED: Bacteriostatic Water 30 ML VIAL FS PRN (16:00)
[2021-06-01] MEDS: methylPREDNISolone Sod Succ 40 MG VIAL IVP SCH ×2 (16:36→21:27)
[2021-06-01] MEDS ORDERED: Potassium Chloride 20 MEQ TAB PO SCH (18:00)
[2021-06-01] MEDS ORDERED: methylPREDNISolone Sod Succ 40 MG VIAL IVP SCH (18:00)
[2021-06-01] MEDS: Atorvastatin Calcium 40 MG TAB PO SCH (20:10)
[2021-06-02] MEDS: Oxacillin 2 GM in Sodium Chloride 0.9% 100 ML IVPB SCH ×7 (01:00→23:52)
[2021-06-02 04:10] LABS: Anion Gap 12 mmol/L (10-20); BUN (Urea Nitrogen) 22 mg/dL (9.8-20.1); Calc. Creatinine Clearance 130 mL/min (70-130); Calcium 8.1 mg/dL (7.8-10.44); Carbon Dioxide 27 mmol/L (23-31); Chloride 107 mmol/L (98-107); Glucose 268 mg/dL (80-115); Magnesium 1.9 mg/dL (1.6-2.6); Potassium 4.4 mmol/L (3.5-5.1); Sodium 142 mmol/L (136-145)
[2021-06-02] MEDS: Haloperidol Lactate 5 MG/ML VIAL IM SCH ×3 (04:14→20:47)
[2021-06-02] MEDS: methylPREDNISolone Sod Succ 40 MG VIAL IVP SCH ×4 (04:14→22:01)
[2021-06-02 05:05] LABS: Band 19 % (5-11); Eosinophils 1 % (0-10); Hemoglobin 8.9 g/dL (12.0-16.0); Lymphocytes 5 % (21-51); MDiff Complete? YES; Mean Corpuscular HGB CONC 33.2 g/dL (32.0-36.0); Mean Corpuscular Hemoglobin 32.2 pg (27.0-31.0); Mean Corpuscular Volume 96.9 fL (78.0-98.0); Mean Platelet Volume 9.6 fL (7.4-10.4); Myelocyte 1 % (0-0); Neutrophil 74 % (42-75); Platelet Count 272 thou/uL (130-400); RBC Distribution Width 13.1 % (11.5-14.5); Red Blood Cell (RBC) Count 2.77 mill/uL (4.20-5.40); White Blood Cell (WBC) Count 7.2 thou/uL (4.8-10.8)
[2021-06-02] MEDS: Albumin 25% 25 GM/100 ML BOT IVPB SCH ×2 (05:07→12:22)
[2021-06-02] MEDS: Furosemide 20 MG/2 ML VIAL SLOW IVP SCH ×2 (05:08→14:27)
[2021-06-02] MEDS: Metoclopramide HCl 10 MG/2 ML VIAL IVP SCH ×3 (05:08→21:58)
[2021-06-02] MEDS ORDERED: Magnesium 2 GM/50 ML 2 GM in Premix Bag 1 BAG IVPB SCH (05:15)
[2021-06-02 06:46] LABS: Actual Bicarbonate (HCO3a) 25.6 mEq/L (22-28); Base Excess (BEa) 1.6 mEq/L (-2.0 to +3.0); Calcium, Ionized (arterial) 1.11 mmol/L (1.12-1.30); Carboxyhemoglobin (COHb) 0.3 gm% (0.0-3.0); Hemoglobin (Hb) 10.5 g/dL (12.0-16.0); O2 Tension (PaO2), arterial 78.5 mmHg (> 80.0); Potassium - ABG Lab 4.39 mmol/L (3.70-5.30); pH, Arterial 7.45 (7.35-7.45)
[2021-06-02 06:49] LABS: Puncture Site RRA
[2021-06-02] MEDS ORDERED: Potassium Chloride 20 MEQ TAB PO SCH (09:00)
[2021-06-02] MEDS: Pantoprazole 40 MG VIAL IVP SCH (09:15)
[2021-06-02] MEDS: Famotidine 20 MG TAB PER TUBE SCH ×2 (09:16→20:48)
[2021-06-02] MEDS: Heparin 5,000 UNITS/ML VIAL SC SCH ×2 (09:17→20:47)
[2021-06-02] MEDS: Aspirin Chewable 81 MG TAB PO SCH (09:17)
[2021-06-02] MEDS: Lorazepam 2 MG/ML VIAL SLOW IVP PRN (20:27)
[2021-06-02] MEDS: Atorvastatin Calcium 40 MG TAB PO SCH (20:48)
[2021-06-03] MEDS: Morphine 2 MG/ML VIAL SLOW IVP PRN ×8 (00:09→23:03)
[2021-06-03] MEDS: methylPREDNISolone Sod Succ 40 MG VIAL IVP SCH ×4 (03:47→22:02)
[2021-06-03] MEDS: Oxacillin 2 GM in Sodium Chloride 0.9% 100 ML IVPB SCH ×6 (03:47→23:19)
[2021-06-03] MEDS: Haloperidol Lactate 5 MG/ML VIAL IM SCH ×3 (03:47→20:12)
[2021-06-03 05:07] LABS: Anion Gap 16 mmol/L (10-20); BUN (Urea Nitrogen) 29 mg/dL (9.8-20.1); Calc. Creatinine Clearance 98 mL/min (70-130); Calcium 8.5 mg/dL (7.8-10.44); Carbon Dioxide 25 mmol/L (23-31); Chloride 104 mmol/L (98-107); Glucose 528 mg/dL (80-115); Sodium 141 mmol/L (136-145)
[2021-06-03] MEDS: Metoclopramide HCl 10 MG/2 ML VIAL IVP SCH ×3 (05:51→22:01)
[2021-06-03] MEDS: Furosemide 20 MG/2 ML VIAL SLOW IVP SCH (05:51)
[2021-06-03] MEDS: HumaLOG 300 UNITS/3 ML VIAL SC PRN ×5 (05:59→22:49)
[2021-06-03] MEDS ORDERED: Dextrose 50% Abboject 50 ML SYRINGE IVP PRN (06:00)
[2021-06-03] MEDS ORDERED: Dextrose 5% in Water 1,000 ML IV PRN (06:00)
[2021-06-03 07:25] LABS: Hemoglobin 8.6 g/dL (12.0-16.0); Mean Corpuscular HGB CONC 33.4 g/dL (32.0-36.0); Mean Corpuscular Hemoglobin 32.4 pg (27.0-31.0); Mean Corpuscular Volume 96.8 fL (78.0-98.0); Mean Platelet Volume 9.9 fL (7.4-10.4); Platelet Count 387 thou/uL (130-400); RBC Distribution Width 13.3 % (11.5-14.5); Red Blood Cell (RBC) Count 2.64 mill/uL (4.20-5.40); White Blood Cell (WBC) Count 11.3 thou/uL (4.8-10.8)
[2021-06-03 08:05] LABS: Band 8 % (5-11); Eosinophils 1 % (0-10); Lymphocytes 4 % (21-51); MDiff Complete? YES; Monocytes 7 % (0-10); Myelocyte 1 % (0-0); Neutrophil 79 % (42-75); Platelet Morphology Comment Appears Adequate; Polychromasia SLIGHT = 2-3 cells (100X) (0-2/hpf)
[2021-06-03] MEDS: Potassium Chloride 20 MEQ TAB PO SCH (09:41)
[2021-06-03] MEDS: Heparin 5,000 UNITS/ML VIAL SC SCH ×2 (09:42→20:15)
[2021-06-03] MEDS: Pantoprazole 40 MG VIAL IVP SCH (09:43)
[2021-06-03] MEDS: Aspirin Chewable 81 MG TAB PO SCH (09:43)
[2021-06-03] MEDS: Famotidine 20 MG TAB PER TUBE SCH (10:04)
[2021-06-03] MEDS ORDERED: Lantus 1000 UNITS/10 ML VIAL SC SCH (11:15)
[2021-06-03] MEDS: Lorazepam 2 MG/ML VIAL SLOW IVP PRN ×4 (15:22→23:19)
[2021-06-03] MEDS: fentaNYL 50 mcg/hour Patch TD SCH (16:27)
[2021-06-03] MEDS ORDERED: Fentanyl CADD 0 ML ONE (20:07)
[2021-06-03] MEDS: Atorvastatin Calcium 40 MG TAB PO SCH (20:13)
[2021-06-04] MEDS: Morphine 2 MG/ML VIAL SLOW IVP PRN ×2 (00:02→02:31)
[2021-06-04] MEDS: Lorazepam 2 MG/ML VIAL SLOW IVP PRN (02:31)
[2021-06-04] MEDS: Oxacillin 2 GM in Sodium Chloride 0.9% 100 ML IVPB SCH ×6 (03:50→23:40)
[2021-06-04] MEDS: Haloperidol Lactate 5 MG/ML VIAL IM SCH ×3 (04:10→20:14)
[2021-06-04] MEDS: methylPREDNISolone Sod Succ 40 MG VIAL IVP SCH ×4 (04:10→21:22)
[2021-06-04] MEDS: HumaLOG 300 UNITS/3 ML VIAL SC PRN ×4 (04:38→21:32)
[2021-06-04] MEDS: Metoclopramide HCl 10 MG/2 ML VIAL IVP SCH ×3 (05:30→21:23)
[2021-06-04 06:47] LABS: Mean Corpuscular HGB CONC 33.5 g/dL (32.0-36.0); Mean Corpuscular Hemoglobin 32.4 pg (27.0-31.0); Mean Corpuscular Volume 96.7 fL (78.0-98.0); Mean Platelet Volume 9.6 fL (7.4-10.4); Platelet Count 419 thou/uL (130-400); RBC Distribution Width 13.7 % (11.5-14.5); Red Blood Cell (RBC) Count 2.77 mill/uL (4.20-5.40); White Blood Cell (WBC) Count 8.9 thou/uL (4.8-10.8)
[2021-06-04 06:56] LABS: Anion Gap 13 mmol/L (10-20); BUN (Urea Nitrogen) 31 mg/dL (9.8-20.1); Calc. Creatinine Clearance 0 mL/min (70-130); Calcium 8.6 mg/dL (7.8-10.44); Carbon Dioxide 28 mmol/L (23-31); Chloride 109 mmol/L (98-107); Glucose 289 mg/dL (80-115); Potassium 3.9 mmol/L (3.5-5.1); Sodium 146 mmol/L (136-145)
[2021-06-04 07:41] LABS: Band 2 % (5-11); Lymphocytes 12 % (21-51); MDiff Complete? YES; Monocytes 4 % (0-10); Neutrophil 82 % (42-75); Polychromasia SLIGHT = 2-3 cells (100X) (0-2/hpf)
[2021-06-04] MEDS: Furosemide 20 MG/2 ML VIAL SLOW IVP SCH (09:33)
[2021-06-04] MEDS: Potassium Chloride 20 MEQ TAB PO SCH (09:33)
[2021-06-04] MEDS: Aspirin Chewable 81 MG TAB PO SCH (09:33)
[2021-06-04] MEDS: Pantoprazole 40 MG VIAL IVP SCH (09:34)
[2021-06-04] MEDS: Heparin 5,000 UNITS/ML VIAL SC SCH ×2 (09:38→21:23)
[2021-06-04] MEDS: Lantus 1000 UNITS/10 ML VIAL SC SCH (09:42)
[2021-06-04] MEDS ORDERED: Midazolam HCl 2 mg/2 ml Vial ONE (11:37)
[2021-06-04] MEDS ORDERED: Fentanyl 100 MCG/2 ML VIAL ONE (11:37)
[2021-06-04] MEDS ORDERED: Bupivacaine PF 0.5% 30 ML VIAL ONE (11:42)
[2021-06-04] MEDS ORDERED: Lidocaine 1% w/Epinephrine 1:100K 30 ML VIAL ONE (11:42)
[2021-06-04] MEDS ORDERED: Ondansetron PF 4 MG/2 ML Vial ONE (12:07)
[2021-06-04] MEDS ORDERED: Rocuronium Bromide 10 MG/ML (10ML VIAL) ONE (12:07)
[2021-06-04] MEDS ORDERED: ePHEDrine 50 MG/ML VIAL ONE (12:07)
[2021-06-04] MEDS ORDERED: Dexamethasone 20 MG/5 ML VIAL ONE (12:07)
[2021-06-04] MEDS: Atorvastatin Calcium 40 MG TAB PO SCH (21:22)
[2021-06-05] MEDS: methylPREDNISolone Sod Succ 40 MG VIAL IVP SCH ×4 (03:07→21:11)
[2021-06-05] MEDS: Oxacillin 2 GM in Sodium Chloride 0.9% 100 ML IVPB SCH ×5 (03:08→19:52)
[2021-06-05] MEDS: Haloperidol Lactate 5 MG/ML VIAL IM SCH ×2 (03:08→11:21)
[2021-06-05 04:07] LABS: Band 2 % (5-11); Hemoglobin 9.3 g/dL (12.0-16.0); Hypochromia SLIGHT = 6-15 cells (100X) (0-5/hpf); Lymphocytes 6 % (21-51); MDiff Complete? YES; Mean Corpuscular HGB CONC 33.2 g/dL (32.0-36.0); Mean Corpuscular Hemoglobin 32.3 pg (27.0-31.0); Mean Corpuscular Volume 97.4 fL (78.0-98.0); Mean Platelet Volume 9.6 fL (7.4-10.4); Monocytes 4 % (0-10); Neutrophil 88 % (42-75); Platelet Count 377 thou/uL (130-400); Platelet Morphology Comment Appears Adequate; Red Blood Cell (RBC) Count 2.89 mill/uL (4.20-5.40); White Blood Cell (WBC) Count 6.7 thou/uL (4.8-10.8)
[2021-06-05 04:11] LABS: Anion Gap 13 mmol/L (10-20); BUN (Urea Nitrogen) 31 mg/dL (9.8-20.1); Calc. Creatinine Clearance 128 mL/min (70-130); Calcium 8.6 mg/dL (7.8-10.44); Carbon Dioxide 30 mmol/L (23-31); Chloride 107 mmol/L (98-107); Glucose 299 mg/dL (80-115); Potassium 4.2 mmol/L (3.5-5.1); Sodium 146 mmol/L (136-145)
[2021-06-05] MEDS: HumaLOG 300 UNITS/3 ML VIAL SC PRN ×4 (04:29→21:14)
[2021-06-05] MEDS: Metoclopramide HCl 10 MG/2 ML VIAL IVP SCH ×3 (05:03→21:11)
[2021-06-05] MEDS: Heparin 5,000 UNITS/ML VIAL SC SCH ×2 (08:49→21:11)
[2021-06-05] MEDS: Aspirin Chewable 81 MG TAB PO SCH (08:50)
[2021-06-05] MEDS: Potassium Chloride 20 MEQ TAB PO SCH (08:50)
[2021-06-05] MEDS: Furosemide 20 MG/2 ML VIAL SLOW IVP SCH (08:50)
[2021-06-05] MEDS: Lantus 1000 UNITS/10 ML VIAL SC SCH (08:51)
[2021-06-05] MEDS: Pantoprazole 40 MG VIAL IVP SCH (08:51)
[2021-06-05] MEDS: Haloperidol Lactate 5 MG/ML VIAL IM PRN (20:25)
[2021-06-05] MEDS: Lorazepam 2 MG/ML VIAL SLOW IVP PRN ×3 (20:55→23:36)
[2021-06-05] MEDS: Atorvastatin Calcium 40 MG TAB PO SCH (21:11)
[2021-06-05] MEDS: Morphine 2 MG/ML VIAL SLOW IVP PRN (22:22)
[2021-06-06] MEDS: Oxacillin 2 GM in Sodium Chloride 0.9% 100 ML IVPB SCH ×7 (00:54→23:02)
[2021-06-06] MEDS: Lorazepam 2 MG/ML VIAL SLOW IVP PRN ×3 (00:54→03:09)
[2021-06-06] MEDS: Morphine 2 MG/ML VIAL SLOW IVP PRN ×3 (01:30→14:46)
[2021-06-06] MEDS: Acetaminophen 325 MG TAB PO PRN ×2 (01:45→11:36)
[2021-06-06] MEDS: HumaLOG 300 UNITS/3 ML VIAL SC PRN ×4 (04:37→21:19)
[2021-06-06] MEDS: Metoclopramide HCl 10 MG/2 ML VIAL IVP SCH ×3 (06:03→21:16)
[2021-06-06] MEDS: methylPREDNISolone Sod Succ 40 MG VIAL IVP SCH ×3 (06:03→21:16)
[2021-06-06 07:27] LABS: Anion Gap 13 mmol/L (10-20); BUN (Urea Nitrogen) 31 mg/dL (9.8-20.1); Calc. Creatinine Clearance 114 mL/min (70-130); Calcium 8.9 mg/dL (7.8-10.44); Carbon Dioxide 31 mmol/L (23-31); Chloride 109 mmol/L (98-107); Glucose 169 mg/dL (80-115); Potassium 3.2 mmol/L (3.5-5.1); Sodium 150 mmol/L (136-145)
[2021-06-06] MEDS: Aspirin Chewable 81 MG TAB PO SCH (08:01)
[2021-06-06] MEDS: Potassium Chloride 20 MEQ TAB PO SCH (08:01)
[2021-06-06] MEDS: Furosemide 40 MG/4 ML VIAL SLOW IVP SCH (08:01)
[2021-06-06] MEDS: Heparin 5,000 UNITS/ML VIAL SC SCH ×2 (08:02→20:00)
[2021-06-06] MEDS: Pantoprazole 40 MG VIAL IVP SCH (08:02)
[2021-06-06] MEDS: Lantus 1000 UNITS/10 ML VIAL SC SCH (08:03)
[2021-06-06] MEDS: Dexmedetomidine 1,000 MCG in Sodium Chloride 0.9% 250 ML 240 ML IVPB SCH ×2 (08:16→15:10)
[2021-06-06 08:27] LABS: Hemoglobin 11.2 g/dL (12.0-16.0); Mean Corpuscular HGB CONC 33.4 g/dL (32.0-36.0); Mean Corpuscular Hemoglobin 32.5 pg (27.0-31.0); Mean Corpuscular Volume 97.1 fL (78.0-98.0); Mean Platelet Volume 9.4 fL (7.4-10.4); Platelet Count 538 thou/uL (130-400); RBC Distribution Width 14.3 % (11.5-14.5); Red Blood Cell (RBC) Count 3.44 mill/uL (4.20-5.40); White Blood Cell (WBC) Count 15.7 thou/uL (4.8-10.8)
[2021-06-06 10:53] LABS: Band 1 % (5-11); Lymphocytes 16 % (21-51); MDiff Complete? YES; Monocytes 7 % (0-10); Neutrophil 75 % (42-75); Platelet Morphology Comment Appears Increased; Polychromasia SLIGHT = 2-3 cells (100X) (0-2/hpf); Reactive Lymphocytes 1 % (0-10); Vacuoles SLIGHT
[2021-06-06] MEDS: Haloperidol Lactate 5 MG/ML VIAL IM PRN (11:36)
[2021-06-06] MEDS ORDERED: Potassium Chloride 20 MEQ TAB PO SCH (12:00)
[2021-06-06] MEDS: fentaNYL 50 mcg/hour Patch TD SCH (15:10)
[2021-06-06] MEDS: Atorvastatin Calcium 40 MG TAB PO SCH (20:00)
[2021-06-07] MEDS: Oxacillin 2 GM in Sodium Chloride 0.9% 100 ML IVPB SCH ×6 (03:10→23:13)
[2021-06-07 03:54] LABS: Hemoglobin 10.1 g/dL (12.0-16.0); Mean Corpuscular HGB CONC 33.4 g/dL (32.0-36.0); Mean Corpuscular Hemoglobin 32.8 pg (27.0-31.0); Mean Corpuscular Volume 98.1 fL (78.0-98.0); Mean Platelet Volume 9.4 fL (7.4-10.4); Platelet Count 329 thou/uL (130-400); RBC Distribution Width 14.5 % (11.5-14.5); Red Blood Cell (RBC) Count 3.08 mill/uL (4.20-5.40); White Blood Cell (WBC) Count 9.3 thou/uL (4.8-10.8)
[2021-06-07 03:55] LABS: Band 5 % (5-11); Hypochromia SLIGHT = 6-15 cells (100X) (0-5/hpf); Lymphocytes 3 % (21-51); MDiff Complete? YES; Monocytes 4 % (0-10); Neutrophil 88 % (42-75); Platelet Morphology Comment Appears Adequate
[2021-06-07 04:02] LABS: Anion Gap 14 mmol/L (10-20); BUN (Urea Nitrogen) 38 mg/dL (9.8-20.1); Calc. Creatinine Clearance 107 mL/min (70-130); Calcium 8.2 mg/dL (7.8-10.44); Carbon Dioxide 28 mmol/L (23-31); Chloride 107 mmol/L (98-107); Glucose 310 mg/dL (80-115); Potassium 4.2 mmol/L (3.5-5.1); Sodium 145 mmol/L (136-145)
[2021-06-07] MEDS: HumaLOG 300 UNITS/3 ML VIAL SC PRN ×4 (04:09→20:43)
[2021-06-07] MEDS: Dexmedetomidine 1,000 MCG in Sodium Chloride 0.9% 250 ML 240 ML IVPB SCH ×2 (04:19→23:15)
[2021-06-07] MEDS: methylPREDNISolone Sod Succ 40 MG VIAL IVP SCH ×3 (05:03→21:10)
[2021-06-07] MEDS: Metoclopramide HCl 10 MG/2 ML VIAL IVP SCH ×3 (05:08→21:14)
[2021-06-07] MEDS: Heparin 5,000 UNITS/ML VIAL SC SCH ×2 (08:26→20:15)
[2021-06-07] MEDS: Lantus 1000 UNITS/10 ML VIAL SC SCH (08:26)
[2021-06-07] MEDS: Pantoprazole 40 MG VIAL IVP SCH (08:27)
[2021-06-07] MEDS: Potassium Chloride 20 MEQ TAB PO SCH (08:27)
[2021-06-07] MEDS: Furosemide 40 MG/4 ML VIAL SLOW IVP SCH (08:27)
[2021-06-07] MEDS: Aspirin Chewable 81 MG TAB PO SCH (08:27)
[2021-06-07 19:53] LABS: SARS-CoV-2 PCR by NAA Not Detected (NotDetected)
[2021-06-07] MEDS: Atorvastatin Calcium 40 MG TAB PO SCH (20:15)
[2021-06-07] MEDS: NPH, Human Insulin Isophane 300 UNIT/3 ML VIAL SC SCH (20:16)
[2021-06-08 04:25] LABS: Anion Gap 14 mmol/L (10-20); BUN (Urea Nitrogen) 33 mg/dL (9.8-20.1); Calc. Creatinine Clearance 126 mL/min (70-130); Calcium 8.6 mg/dL (7.8-10.44); Carbon Dioxide 29 mmol/L (23-31); Chloride 105 mmol/L (98-107); Glucose 263 mg/dL (80-115); Potassium 3.9 mmol/L (3.5-5.1); Sodium 144 mmol/L (136-145)
[2021-06-08] MEDS: Oxacillin 2 GM in Sodium Chloride 0.9% 100 ML IVPB SCH ×6 (04:59→23:46)
[2021-06-08 05:14] LABS: Band 8 % (5-11); Eosinophils 1 % (0-10); Hemoglobin 10.4 g/dL (12.0-16.0); Lymphocytes 6 % (21-51); MDiff Complete? YES; Macrocytosis SLIGHT = 6-15 cells (100X) (0-5/hpf); Mean Corpuscular HGB CONC 32.1 g/dL (32.0-36.0); Mean Corpuscular Hemoglobin 31.9 pg (27.0-31.0); Mean Corpuscular Volume 99.4 fL (78.0-98.0); Mean Platelet Volume 9.7 fL (7.4-10.4); Monocytes 8 % (0-10); Myelocyte 1 % (0-0); Neutrophil 76 % (42-75); Platelet Count 335 thou/uL (130-400); Platelet Morphology Comment Appears Adequate; RBC Distribution Width 14.3 % (11.5-14.5); Red Blood Cell (RBC) Count 3.27 mill/uL (4.20-5.40); White Blood Cell (WBC) Count 11.8 thou/uL (4.8-10.8)
[2021-06-08] MEDS: methylPREDNISolone Sod Succ 40 MG VIAL IVP SCH ×3 (05:18→21:56)
[2021-06-08] MEDS: Metoclopramide HCl 10 MG/2 ML VIAL IVP SCH ×3 (05:18→22:37)
[2021-06-08] MEDS: HumaLOG 300 UNITS/3 ML VIAL SC PRN ×3 (05:19→16:26)
[2021-06-08] MEDS: Potassium Chloride 20 MEQ TAB PO SCH (08:26)
[2021-06-08] MEDS: Aspirin Chewable 81 MG TAB PO SCH (08:26)
[2021-06-08] MEDS: Heparin 5,000 UNITS/ML VIAL SC SCH ×2 (08:26→21:55)
[2021-06-08] MEDS: Pantoprazole 40 MG VIAL IVP SCH (08:26)
[2021-06-08] MEDS: NPH, Human Insulin Isophane 300 UNIT/3 ML VIAL SC SCH ×2 (08:27→21:57)
[2021-06-08] MEDS: Lorazepam 2 MG/ML VIAL SLOW IVP PRN (10:10)
[2021-06-08] MEDS: Dexmedetomidine 1,000 MCG in Sodium Chloride 0.9% 250 ML 240 ML IVPB SCH (10:14)
[2021-06-08] MEDS: Haloperidol Lactate 5 MG/ML VIAL IM PRN (10:48)
[2021-06-08] MEDS: Atorvastatin Calcium 40 MG TAB PO SCH (21:55)
[2021-06-09] MEDS: Oxacillin 2 GM in Sodium Chloride 0.9% 100 ML IVPB SCH ×5 (04:10→20:09)
[2021-06-09 04:28] LABS: Mean Corpuscular HGB CONC 33.4 g/dL (32.0-36.0); Mean Corpuscular Hemoglobin 33.1 pg (27.0-31.0); Mean Corpuscular Volume 98.9 fL (78.0-98.0); Mean Platelet Volume 9.9 fL (7.4-10.4); Platelet Count 262 thou/uL (130-400); RBC Distribution Width 14.4 % (11.5-14.5); Red Blood Cell (RBC) Count 2.73 mill/uL (4.20-5.40); White Blood Cell (WBC) Count 8.7 thou/uL (4.8-10.8)
[2021-06-09 04:29] LABS: Band 2 % (5-11); Hypochromia SLIGHT = 6-15 cells (100X) (0-5/hpf); Lymphocytes 9 % (21-51); MDiff Complete? YES; Monocytes 6 % (0-10); Neutrophil 83 % (42-75); Platelet Morphology Comment Appears Adequate
[2021-06-09 04:42] LABS: Anion Gap 12 mmol/L (10-20); BUN (Urea Nitrogen) 27 mg/dL (9.8-20.1); Calc. Creatinine Clearance 145 mL/min (70-130); Calcium 8.2 mg/dL (7.8-10.44); Carbon Dioxide 30 mmol/L (23-31); Chloride 105 mmol/L (98-107); Glucose 266 mg/dL (80-115); Potassium 3.9 mmol/L (3.5-5.1); Sodium 143 mmol/L (136-145)
[2021-06-09] MEDS: methylPREDNISolone Sod Succ 40 MG VIAL IVP SCH ×3 (05:13→21:45)
[2021-06-09] MEDS: Metoclopramide HCl 10 MG/2 ML VIAL IVP SCH ×3 (06:13→21:48)
[2021-06-09] MEDS: HumaLOG 300 UNITS/3 ML VIAL SC PRN ×3 (06:34→17:40)
[2021-06-09] MEDS: Heparin 5,000 UNITS/ML VIAL SC SCH ×2 (07:35→20:10)
[2021-06-09] MEDS: Aspirin Chewable 81 MG TAB PO SCH (07:36)
[2021-06-09] MEDS: Pantoprazole 40 MG VIAL IVP SCH (07:36)
[2021-06-09] MEDS: NPH, Human Insulin Isophane 300 UNIT/3 ML VIAL SC SCH ×2 (07:36→20:10)
[2021-06-09] MEDS: Potassium Chloride 20 MEQ TAB PO SCH (07:36)
[2021-06-09] MEDS: Haloperidol Lactate 5 MG/ML VIAL IM PRN (07:38)
[2021-06-09] MEDS: Furosemide 20 MG/2 ML VIAL SLOW IVP SCH (08:36)
[2021-06-09] MEDS: Dexmedetomidine 1,000 MCG in Sodium Chloride 0.9% 250 ML 240 ML IVPB SCH (14:04)
[2021-06-09] MEDS ORDERED: Potassium Chloride 20 MEQ TAB PO SCH (17:00)
[2021-06-09] MEDS: fentaNYL 100 mcg/hour Patch TD SCH (17:03)
[2021-06-09] MEDS: Atorvastatin Calcium 40 MG TAB PO SCH (20:09)
[2021-06-10] MEDS: Oxacillin 2 GM in Sodium Chloride 0.9% 100 ML IVPB SCH ×7 (00:40→23:00)
[2021-06-10 04:31] LABS: Anion Gap 12 mmol/L (10-20); BUN (Urea Nitrogen) 26 mg/dL (9.8-20.1); Calc. Creatinine Clearance 155 mL/min (70-130); Calcium 8.5 mg/dL (7.8-10.44); Carbon Dioxide 30 mmol/L (23-31); Chloride 105 mmol/L (98-107); Glucose 201 mg/dL (80-115); Potassium 3.9 mmol/L (3.5-5.1); Sodium 143 mmol/L (136-145)
[2021-06-10 05:17] LABS: Band 2 % (5-11); Hemoglobin 9.2 g/dL (12.0-16.0); Lymphocytes 6 % (21-51); MDiff Complete? YES; Macrocytosis SLIGHT = 6-15 cells (100X) (0-5/hpf); Mean Corpuscular HGB CONC 32.2 g/dL (32.0-36.0); Mean Corpuscular Hemoglobin 32.2 pg (27.0-31.0); Mean Corpuscular Volume 99.9 fL (78.0-98.0); Mean Platelet Volume 10.4 fL (7.4-10.4); Metamyelocyte 1 % (0-0); Monocytes 3 % (0-10); Myelocyte 1 % (0-0); Neutrophil 84 % (42-75); Platelet Count 228 thou/uL (130-400); Platelet Morphology Comment Appears Adequate; RBC Distribution Width 14.5 % (11.5-14.5); Reactive Lymphocytes 2 % (0-10); Red Blood Cell (RBC) Count 2.86 mill/uL (4.20-5.40); White Blood Cell (WBC) Count 7.5 thou/uL (4.8-10.8)
[2021-06-10] MEDS: Metoclopramide HCl 10 MG/2 ML VIAL IVP SCH ×3 (06:29→23:00)
[2021-06-10] MEDS: Dexmedetomidine 1,000 MCG in Sodium Chloride 0.9% 250 ML 240 ML IVPB SCH ×2 (07:17→20:01)
[2021-06-10] MEDS: Aspirin Chewable 81 MG TAB PO SCH (07:18)
[2021-06-10] MEDS: Potassium Chloride 20 MEQ TAB PO SCH (07:18)
[2021-06-10] MEDS: Furosemide 20 MG/2 ML VIAL SLOW IVP SCH (07:19)
[2021-06-10] MEDS: Heparin 5,000 UNITS/ML VIAL SC SCH ×2 (07:21→19:58)
[2021-06-10] MEDS: methylPREDNISolone Sod Succ 40 MG VIAL IVP SCH ×2 (07:24→19:58)
[2021-06-10] MEDS: Pantoprazole 40 MG VIAL IVP SCH (07:27)
[2021-06-10] MEDS: NPH, Human Insulin Isophane 300 UNIT/3 ML VIAL SC SCH ×2 (07:27→19:59)
[2021-06-10] MEDS: HumaLOG 300 UNITS/3 ML VIAL SC PRN (11:06)
[2021-06-10] MEDS: Atorvastatin Calcium 40 MG TAB PO SCH (19:58)
[2021-06-11] MEDS: HumaLOG 300 UNITS/3 ML VIAL SC PRN ×3 (00:21→16:15)
[2021-06-11] MEDS: Metoclopramide HCl 10 MG/2 ML VIAL IVP SCH ×3 (04:15→20:50)
[2021-06-11] MEDS: Oxacillin 2 GM in Sodium Chloride 0.9% 100 ML IVPB SCH ×6 (04:15→23:42)
[2021-06-11 04:44] LABS: Hemoglobin 9.3 g/dL (12.0-16.0); Hypochromia SLIGHT = 6-15 cells (100X) (0-5/hpf); Lymphocytes 10 % (21-51); MDiff Complete? YES; Mean Corpuscular HGB CONC 31.3 g/dL (32.0-36.0); Mean Corpuscular Hemoglobin 31.2 pg (27.0-31.0); Mean Corpuscular Volume 99.6 fL (78.0-98.0); Mean Platelet Volume 10.4 fL (7.4-10.4); Monocytes 9 % (0-10); Neutrophil 81 % (42-75); Platelet Count 233 thou/uL (130-400); Platelet Morphology Comment Appears Adequate; RBC Distribution Width 14.4 % (11.5-14.5); Red Blood Cell (RBC) Count 2.99 mill/uL (4.20-5.40); White Blood Cell (WBC) Count 11.5 thou/uL (4.8-10.8)
[2021-06-11 04:52] LABS: Anion Gap 12 mmol/L (10-20); BUN (Urea Nitrogen) 29 mg/dL (9.8-20.1); Calc. Creatinine Clearance 158 mL/min (70-130); Calcium 8.3 mg/dL (7.8-10.44); Carbon Dioxide 31 mmol/L (23-31); Chloride 103 mmol/L (98-107); Glucose 131 mg/dL (80-115); Potassium 3.7 mmol/L (3.5-5.1); Sodium 142 mmol/L (136-145)
[2021-06-11] MEDS: Potassium Chloride 20 MEQ TAB PO SCH (09:59)
[2021-06-11] MEDS: Pantoprazole 40 MG VIAL IVP SCH (09:59)
[2021-06-11] MEDS: Heparin 5,000 UNITS/ML VIAL SC SCH ×2 (09:59→20:50)
[2021-06-11] MEDS: NPH, Human Insulin Isophane 300 UNIT/3 ML VIAL SC SCH ×2 (09:59→20:49)
[2021-06-11] MEDS: methylPREDNISolone Sod Succ 40 MG VIAL IVP SCH ×2 (09:59→20:49)
[2021-06-11] MEDS: Aspirin Chewable 81 MG TAB PO SCH (09:59)
[2021-06-11] MEDS: Furosemide 20 MG/2 ML VIAL SLOW IVP SCH (09:59)
[2021-06-11] MEDS: Acetaminophen 325 MG TAB PO PRN (10:00)
[2021-06-11] MEDS: Dexmedetomidine 1,000 MCG in Sodium Chloride 0.9% 250 ML 240 ML IVPB SCH ×2 (11:30→19:29)
[2021-06-11] MEDS ORDERED: Potassium Chloride 20 MEQ TAB PO SCH (12:00)
[2021-06-11] MEDS: Atorvastatin Calcium 40 MG TAB PO SCH (20:52)
[2021-06-12] MEDS: HumaLOG 300 UNITS/3 ML VIAL SC PRN ×3 (00:44→17:55)
[2021-06-12] MEDS: Oxacillin 2 GM in Sodium Chloride 0.9% 100 ML IVPB SCH ×5 (04:13→23:00)
[2021-06-12 04:48] LABS: Hemoglobin 9.3 g/dL (12.0-16.0); Mean Corpuscular HGB CONC 33.2 g/dL (32.0-36.0); Mean Corpuscular Hemoglobin 33.2 pg (27.0-31.0); Mean Platelet Volume 11.1 fL (7.4-10.4); Platelet Count 197 thou/uL (130-400); RBC Distribution Width 14.4 % (11.5-14.5); Red Blood Cell (RBC) Count 2.81 mill/uL (4.20-5.40)
[2021-06-12 04:52] LABS: Anion Gap 12 mmol/L (10-20); BUN (Urea Nitrogen) 27 mg/dL (9.8-20.1); Calc. Creatinine Clearance 154 mL/min (70-130); Calcium 8.2 mg/dL (7.8-10.44); Carbon Dioxide 29 mmol/L (23-31); Chloride 103 mmol/L (98-107); Glucose 226 mg/dL (80-115); Potassium 4.1 mmol/L (3.5-5.1); Sodium 140 mmol/L (136-145)
[2021-06-12] MEDS: Metoclopramide HCl 10 MG/2 ML VIAL IVP SCH ×2 (05:03→12:29)
[2021-06-12 05:24] LABS: Band 5 % (5-11); Lymphocytes 10 % (21-51); MDiff Complete? YES; Monocytes 1 % (0-10); Myelocyte 4 % (0-0); Neutrophil 80 % (42-75)
[2021-06-12] MEDS: Morphine 2 MG/ML VIAL SLOW IVP PRN ×2 (05:26→20:15)
[2021-06-12] MEDS: Dexmedetomidine 1,000 MCG in Sodium Chloride 0.9% 250 ML 240 ML IVPB SCH ×2 (05:28→13:36)
[2021-06-12] MEDS: Haloperidol Lactate 5 MG/ML VIAL IM PRN ×2 (07:56→21:59)
[2021-06-12] MEDS: Aspirin Chewable 81 MG TAB PO SCH (08:02)
[2021-06-12] MEDS: Potassium Chloride 20 MEQ TAB PO SCH (08:02)
[2021-06-12] MEDS: Furosemide 20 MG/2 ML VIAL SLOW IVP SCH (08:02)
[2021-06-12] MEDS: Heparin 5,000 UNITS/ML VIAL SC SCH ×2 (08:02→21:11)
[2021-06-12] MEDS: methylPREDNISolone Sod Succ 40 MG VIAL IVP SCH ×3 (08:03→20:36)
[2021-06-12] MEDS: Pantoprazole 40 MG VIAL IVP SCH (08:03)
[2021-06-12] MEDS: NPH, Human Insulin Isophane 300 UNIT/3 ML VIAL SC SCH ×2 (08:04→22:01)
[2021-06-12 13:13] LABS: SARS-CoV-2 PCR by NAA Not Detected (NotDetected)
[2021-06-12] MEDS: fentaNYL 100 mcg/hour Patch TD SCH (15:51)
[2021-06-12] MEDS: Atorvastatin Calcium 40 MG TAB PO SCH ×2 (20:40→20:43)
[2021-06-12] MEDS: Lorazepam 2 MG/ML VIAL SLOW IVP PRN (21:11)
[2021-06-13] MEDS: Metoclopramide HCl 10 MG/2 ML VIAL IVP SCH ×4 (00:07→22:21)
[2021-06-13] MEDS: Dexmedetomidine 1,000 MCG in Sodium Chloride 0.9% 250 ML 240 ML IVPB SCH ×3 (00:12→12:50)
[2021-06-13] MEDS: HumaLOG 300 UNITS/3 ML VIAL SC PRN ×4 (00:47→23:57)
[2021-06-13 03:36] LABS: Hemoglobin 10.1 g/dL (12.0-16.0); Mean Corpuscular Hemoglobin 32.6 pg (27.0-31.0); Mean Corpuscular Volume 98.9 fL (78.0-98.0); Mean Platelet Volume 11.3 fL (7.4-10.4); Platelet Count 176 thou/uL (130-400); RBC Distribution Width 14.8 % (11.5-14.5); Red Blood Cell (RBC) Count 3.09 mill/uL (4.20-5.40); White Blood Cell (WBC) Count 13.1 thou/uL (4.8-10.8)
[2021-06-13 03:44] LABS: Anion Gap 13 mmol/L (10-20); BUN (Urea Nitrogen) 28 mg/dL (9.8-20.1); Calc. Creatinine Clearance 150 mL/min (70-130); Calcium 8.3 mg/dL (7.8-10.44); Carbon Dioxide 30 mmol/L (23-31); Chloride 102 mmol/L (98-107); Glucose 221 mg/dL (80-115); Potassium 3.9 mmol/L (3.5-5.1); Sodium 141 mmol/L (136-145)
[2021-06-13] MEDS: Oxacillin 2 GM in Sodium Chloride 0.9% 100 ML IVPB SCH ×6 (04:00→23:54)
[2021-06-13 04:06] LABS: Band 2 % (5-11); Lymphocytes 14 % (21-51); MDiff Complete? YES; Macrocytosis SLIGHT = 6-15 cells (100X) (0-5/hpf); Monocytes 4 % (0-10); Neutrophil 80 % (42-75); Platelet Morphology Comment Appears Adequate
[2021-06-13] MEDS: Furosemide 20 MG/2 ML VIAL SLOW IVP SCH (08:28)
[2021-06-13] MEDS: Heparin 5,000 UNITS/ML VIAL SC SCH ×2 (08:30→20:14)
[2021-06-13] MEDS: Pantoprazole 40 MG VIAL IVP SCH (08:32)
[2021-06-13] MEDS: Potassium Chloride 20 MEQ TAB PO SCH (08:34)
[2021-06-13] MEDS: Aspirin Chewable 81 MG TAB PO SCH (08:34)
[2021-06-13] MEDS: NPH, Human Insulin Isophane 300 UNIT/3 ML VIAL SC SCH ×2 (08:35→21:27)
[2021-06-13] MEDS: methylPREDNISolone Sod Succ 40 MG VIAL IVP SCH ×2 (09:30→20:22)
[2021-06-13] MEDS: Morphine 2 MG/ML VIAL SLOW IVP PRN ×3 (10:49→18:24)
[2021-06-13] MEDS: Acetaminophen 325 MG TAB PO PRN (10:51)
[2021-06-13] MEDS: Lorazepam 2 MG/ML VIAL SLOW IVP PRN (15:37)
[2021-06-13] MEDS ORDERED: traMADol HCl 50 MG TAB PO PRN ×2 (16:32→21:18)
[2021-06-13] MEDS: Pregabalin 50 MG CAP PO SCH (20:19)
[2021-06-14] MEDS: Dexmedetomidine 1,000 MCG in Sodium Chloride 0.9% 250 ML 240 ML IVPB SCH ×2 (00:25→12:44)
[2021-06-14] MEDS: Oxacillin 2 GM in Sodium Chloride 0.9% 100 ML IVPB SCH ×6 (04:00→22:35)
[2021-06-14] MEDS: Morphine 2 MG/ML VIAL SLOW IVP PRN (04:02)
[2021-06-14] MEDS: Metoclopramide HCl 10 MG/2 ML VIAL IVP SCH ×3 (06:46→21:25)
[2021-06-14 07:22] LABS: ALT (SGPT) 21 U/L (8-55); AST (SGOT) 19 U/L (5-34); Albumin 2.7 g/dL (3.4-4.8); Alkaline Phosphatase 100 U/L (40-110); Anion Gap 13 mmol/L (10-20); BUN (Urea Nitrogen) 31 mg/dL (9.8-20.1); Bilirubin, Total 0.5 mg/dL (0.2-1.2); Calc. Creatinine Clearance 158 mL/min (70-130); Calcium 8.3 mg/dL (7.8-10.44); Carbon Dioxide 27 mmol/L (23-31); Chloride 103 mmol/L (98-107); Globulin 3.1 g/dL (2.4-3.5); Glucose 123 mg/dL (80-115); Magnesium 1.3 mg/dL (1.6-2.6); Phosphorus 3.1 mg/dL (2.3-4.7); Potassium 3.8 mmol/L (3.5-5.1); Protein, Total 5.8 g/dL (5.8-8.1); Sodium 139 mmol/L (136-145)
[2021-06-14] MEDS ORDERED: Magnesium Sulfate 4 GM in Sodium Chloride 0.9% 250 ML 250 ML IVPB SCH (07:30)
[2021-06-14] MEDS ORDERED: Magnesium 2 GM/50 ML 2 GM in Premix Bag 1 BAG IVPB SCH (07:30)
[2021-06-14 07:34] LABS: Band 2 % (5-11); Hemoglobin 9.9 g/dL (12.0-16.0); Lymphocytes 22 % (21-51); MDiff Complete? YES; Mean Corpuscular HGB CONC 32.6 g/dL (32.0-36.0); Mean Corpuscular Hemoglobin 32.3 pg (27.0-31.0); Mean Corpuscular Volume 98.8 fL (78.0-98.0); Mean Platelet Volume 11.6 fL (7.4-10.4); Metamyelocyte 6 % (0-0); Monocytes 5 % (0-10); Neutrophil 64 % (42-75); Platelet Count 194 thou/uL (130-400); RBC Distribution Width 14.9 % (11.5-14.5); Reactive Lymphocytes 1 % (0-10); Red Blood Cell (RBC) Count 3.08 mill/uL (4.20-5.40); White Blood Cell (WBC) Count 11.6 thou/uL (4.8-10.8)
[2021-06-14] MEDS ORDERED: traMADol HCl 50 MG TAB PO PRN ×4 (08:16→11:49)
[2021-06-14] MEDS: Aspirin Chewable 81 MG TAB PO SCH (08:31)
[2021-06-14] MEDS: Potassium Chloride 20 MEQ TAB PO SCH (08:31)
[2021-06-14] MEDS: Pregabalin 50 MG CAP PO SCH ×3 (08:32→20:51)
[2021-06-14] MEDS: Heparin 5,000 UNITS/ML VIAL SC SCH ×2 (08:32→20:51)
[2021-06-14] MEDS: Furosemide 20 MG/2 ML VIAL SLOW IVP SCH (08:32)
[2021-06-14] MEDS: methylPREDNISolone Sod Succ 40 MG VIAL IVP SCH ×2 (08:33→20:49)
[2021-06-14] MEDS: NPH, Human Insulin Isophane 300 UNIT/3 ML VIAL SC SCH ×2 (08:35→20:52)
[2021-06-14] MEDS: Pantoprazole 40 MG VIAL IVP SCH (08:35)
[2021-06-14] MEDS: tiZANidine HCl 4 MG TAB PO PRN ×2 (09:22→20:48)
[2021-06-14] MEDS: Acetaminophen 325 MG TAB PO PRN (09:23)
[2021-06-14] MEDS: HumaLOG 300 UNITS/3 ML VIAL SC PRN ×3 (10:48→22:36)
[2021-06-14] MEDS: traMADol HCl 50 MG TAB PO PRN (20:50)
[2021-06-14] MEDS: Atorvastatin Calcium 40 MG TAB PO SCH (20:51)
[2021-06-15] MEDS: Oxacillin 2 GM in Sodium Chloride 0.9% 100 ML IVPB SCH ×5 (03:57→18:37)
[2021-06-15 04:19] LABS: Hemoglobin 10.1 g/dL (12.0-16.0); Mean Corpuscular HGB CONC 32.2 g/dL (32.0-36.0); Mean Corpuscular Hemoglobin 32.2 pg (27.0-31.0); Mean Platelet Volume 11.7 fL (7.4-10.4); Platelet Count 211 thou/uL (130-400); RBC Distribution Width 15.2 % (11.5-14.5); Red Blood Cell (RBC) Count 3.15 mill/uL (4.20-5.40); White Blood Cell (WBC) Count 13.8 thou/uL (4.8-10.8)
[2021-06-15 04:26] LABS: Anion Gap 12 mmol/L (10-20); BUN (Urea Nitrogen) 33 mg/dL (9.8-20.1); Calc. Creatinine Clearance 153 mL/min (70-130); Calcium 8.5 mg/dL (7.8-10.44); Carbon Dioxide 28 mmol/L (23-31); Chloride 101 mmol/L (98-107); Glucose 202 mg/dL (80-115); Potassium 4.1 mmol/L (3.5-5.1); Sodium 137 mmol/L (136-145)
[2021-06-15] MEDS: HumaLOG 300 UNITS/3 ML VIAL SC PRN ×3 (04:57→16:40)
[2021-06-15 05:03] LABS: Band 4 % (5-11); Lymphocytes 8 % (21-51); MDiff Complete? YES; Metamyelocyte 1 % (0-0); Monocytes 4 % (0-10); Myelocyte 2 % (0-0); Neutrophil 81 % (42-75)
[2021-06-15] MEDS: Metoclopramide HCl 10 MG/2 ML VIAL IVP SCH ×3 (06:34→21:27)
[2021-06-15] MEDS: Pregabalin 50 MG CAP PO SCH ×3 (09:25→20:42)
[2021-06-15] MEDS: Aspirin Chewable 81 MG TAB PO SCH (09:25)
[2021-06-15] MEDS: methylPREDNISolone Sod Succ 40 MG VIAL IVP SCH (09:25)
[2021-06-15] MEDS: Potassium Chloride 20 MEQ TAB PO SCH (09:25)
[2021-06-15] MEDS: Furosemide 20 MG/2 ML VIAL SLOW IVP SCH (09:30)
[2021-06-15] MEDS: Heparin 5,000 UNITS/ML VIAL SC SCH (09:35)
[2021-06-15] MEDS: NPH, Human Insulin Isophane 300 UNIT/3 ML VIAL SC SCH ×2 (09:36→20:43)
[2021-06-15] MEDS: Pantoprazole 40 MG VIAL IVP SCH (09:36)
[2021-06-15] MEDS: traMADol HCl 50 MG TAB PO PRN ×2 (09:42→20:43)
[2021-06-15] MEDS: tiZANidine HCl 4 MG TAB PO PRN ×2 (13:38→20:42)
[2021-06-15 13:45] LABS: SARS-CoV-2 PCR by NAA Not Detected (NotDetected)
[2021-06-15] MEDS: fentaNYL 100 mcg/hour Patch TD SCH (16:22)
[2021-06-15] MEDS ORDERED: Lorazepam 2 MG/ML VIAL SLOW IVP PRN (19:06)
[2021-06-15] MEDS ORDERED: fentaNYL 75 mcg/hour Patch TD SCH (20:00)
[2021-06-15] MEDS: Atorvastatin Calcium 40 MG TAB PO SCH (20:43)
[2021-06-16] MEDS: Cephalexin 250 MG CAP PO SCH ×5 (02:21→23:43)
[2021-06-16] MEDS: Metoclopramide HCl 10 MG/2 ML VIAL IVP SCH ×3 (05:49→21:29)
[2021-06-16] MEDS: Enoxaparin Sodium 40 MG/0.4 ML SYRINGE SC SCH (09:16)
[2021-06-16] MEDS: Pantoprazole 40 MG VIAL IVP SCH (09:17)
[2021-06-16] MEDS: Furosemide 20 MG/2 ML VIAL SLOW IVP SCH (09:17)
[2021-06-16] MEDS: Aspirin Chewable 81 MG TAB PO SCH (09:18)
[2021-06-16] MEDS: Pregabalin 50 MG CAP PO SCH ×3 (09:18→21:29)
[2021-06-16] MEDS: Potassium Chloride 20 MEQ TAB PO SCH (09:19)
[2021-06-16] MEDS: predniSONE 20 MG TAB PO SCH (09:19)
[2021-06-16] MEDS: NPH, Human Insulin Isophane 300 UNIT/3 ML VIAL SC SCH ×2 (09:19→22:00)
[2021-06-16] MEDS: traMADol HCl 50 MG TAB PO PRN (11:16)
[2021-06-16] MEDS: Haloperidol Lactate 5 MG/ML VIAL IM PRN (11:56)
[2021-06-16 14:50] VITALS: BMI 41.8
[2021-06-16] MEDS: tiZANidine HCl 4 MG TAB PO PRN (16:36)
[2021-06-16] MEDS: HumaLOG 300 UNITS/3 ML VIAL SC PRN (16:51)
[2021-06-16] MEDS ORDERED: Lactated Ringer's 500 ML IV SCH ×3 (20:00→21:15)
[2021-06-16] MEDS: Lactated Ringer's 500 ML IV SCH ×2 (21:23→21:59)
[2021-06-16] MEDS: Atorvastatin Calcium 40 MG TAB PO SCH (21:30)
[2021-06-17] MEDS: Cephalexin 250 MG CAP PO SCH ×3 (05:09→18:09)
[2021-06-17] MEDS: Metoclopramide HCl 10 MG/2 ML VIAL IVP SCH ×3 (05:09→21:08)
[2021-06-17] MEDS: Pregabalin 50 MG CAP PO SCH ×3 (09:04→21:06)
[2021-06-17] MEDS: Aspirin Chewable 81 MG TAB PO SCH (09:05)
[2021-06-17] MEDS: Potassium Chloride 20 MEQ TAB PO SCH ×2 (09:05→09:28)
[2021-06-17] MEDS: predniSONE 20 MG TAB PO SCH (09:05)
[2021-06-17] MEDS: Enoxaparin Sodium 40 MG/0.4 ML SYRINGE SC SCH (09:06)
[2021-06-17] MEDS: Pantoprazole 40 MG VIAL IVP SCH (09:06)
[2021-06-17] MEDS: Furosemide 20 MG/2 ML VIAL SLOW IVP SCH ×2 (09:06→09:24)
[2021-06-17] MEDS: NPH, Human Insulin Isophane 300 UNIT/3 ML VIAL SC SCH ×2 (09:08→19:56)
[2021-06-17] MEDS: traMADol HCl 50 MG TAB PO PRN ×2 (12:54→20:06)
[2021-06-17 13:45] VITALS: BP 177/82
[2021-06-17] MEDS: HumaLOG 300 UNITS/3 ML VIAL SC PRN (15:41)
[2021-06-17] MEDS: Atorvastatin Calcium 40 MG TAB PO SCH (21:06)
[2021-06-17 21:18] VITALS: TEMP 98.6
== END 2021-06-17 22:45 | DRG 4 ==
LOC: EDBD 06:47 → ERS 06:47 → ERHOLD 07:45 → CCU 05-23 01:37
PROVIDERS: ADMIT Emergency Medicine; ATTEND Internal Medicine Geriatric Medicine
PROC: 5A1955Z Respiratory Ventilation, Greater than 96 Consecutive Hours (ICD-10-PCS; 2021-05-22)
PROC: 06HY33Z Insertion of Infusion Device into Lower Vein, Percutaneous Approach (ICD-10-PCS; 2021-05-22)
PROC: 3E033XZ Introduction of Vasopressor into Peripheral Vein, Percutaneous Approach (ICD-10-PCS; 2021-05-22)
PROC: 0B918ZX Drainage of Trachea, Via Natural or Artificial Opening Endoscopic, Diagnostic (ICD-10-PCS; 2021-05-28)
PROC: 0B9F8ZX Drainage of Right Lower Lung Lobe, Via Natural or Artificial Opening Endoscopic, Diagnostic (ICD-10-PCS; 2021-05-28)
PROC: 0B110F4 Bypass Trachea to Cutaneous with Tracheostomy Device, Open Approach (ICD-10-PCS; principal; 2021-06-04)
PROC: 0DH63UZ Insertion of Feeding Device into Stomach, Percutaneous Approach (ICD-10-PCS; 2021-06-04)
PROC: 3E0G76Z Introduction of Nutritional Substance into Upper GI, Via Natural or Artificial Opening (ICD-10-PCS; 2021-06-04)
PROC: 0B21XFZ Change Tracheostomy Device in Trachea, External Approach (ICD-10-PCS; 2021-06-09)
DX: A41.9 Sepsis, unspecified organism (principal); R65.21 Severe sepsis with septic shock; I21.A1 Myocardial infarction type 2; J15.211 Pneumonia due to Methicillin susceptible Staphylococcus aureus; J80 Acute respiratory distress syndrome; N17.9 Acute kidney failure, unspecified; I69.351 Hemiplegia and hemiparesis following cerebral infarction affecting right dominant side; Z99.11 Dependence on respirator [ventilator] status; G93.40 Encephalopathy, unspecified; E87.0 Hyperosmolality and hypernatremia; I50.32 Chronic diastolic (congestive) heart failure; G89.29 Other chronic pain; M54.9 Dorsalgia, unspecified; D64.9 Anemia, unspecified; E11.9 Type 2 diabetes mellitus without complications; E78.5 Hyperlipidemia, unspecified; E88.09 Other disorders of plasma-protein metabolism, not elsewhere classified; E66.01 Morbid (severe) obesity due to excess calories; N18.30 Chronic kidney disease, stage 3 unspecified; I25.10 Atherosclerotic heart disease of native coronary artery without angina pectoris; Z20.822 Contact with and (suspected) exposure to COVID-19; Z78.1 Physical restraint status; Z79.899 Other long term (current) drug therapy; Z68.39 Body mass index [BMI] 39.0-39.9, adult
CPT/HCPCS: 0240U; 31624; 36415; 36416; 36556; 36600; 51702; 70450; 71045; 71250; 71260; 74018; 74176; 74177; 76770; 80048; 80053; 80202; 81003; 81015; 82140; 82553; 82805; 83605; 83735; 83880; 84100; 84443; 84484; 85007; 85025; 85027; 85610; 85730; 87040; 87070; 87077; 87086; 87186; 87205; 93005; 93306; 94002; 94003; 94640; 96361; 96365; 96366; 96367; 96375; 99292; C9113; J0692; J1100; J1630; J1644; J1650; J1815; J1940; J2020; J2060; J2185; J2250; J2270; J2310; J2405; J2700; J2704; J2765; J2920; J3010; J3370; J3475; J3480; J3490; J7050; J7120; J7512; J7620; P9047; Q9967; S0020; S0028; U0003; U0005

== ENCOUNTER 2021-10-01 14:09 | Emergency (ER) | payer OTHER ==
[2021-10-01 15:32] LABS: #Lymphocytes 1.2 thou/uL (1.20-3.40); #Monocytes 1.2 thou/uL (0.11-0.59); #Neutrophils 7.9 thou/uL (1.40-6.50); %Basophils 0.3 % (0.0-1.0); %Eosinophils 0.4 % (0.0-10.0); %Lymphocytes 11.7 % (21.0-51.0); %Monocytes 11.4 % (0.0-10.0); %Neutrophils 76.1 % (42.0-75.0); Hemoglobin 15.2 g/dL (12.0-16.0); Mean Corpuscular HGB CONC 32.3 g/dL (32.0-36.0); Mean Corpuscular Hemoglobin 29.6 pg (27.0-31.0); Mean Corpuscular Volume 91.4 fL (78.0-98.0); Mean Platelet Volume 9.1 fL (7.4-10.4); Platelet Count 250 thou/uL (130-400); RBC Distribution Width 13.7 % (11.5-14.5); Red Blood Cell (RBC) Count 5.14 mill/uL (4.20-5.40); White Blood Cell (WBC) Count 10.4 thou/uL (4.8-10.8)
[2021-10-01] MEDS ORDERED: Acetaminophen 500 MG TAB ONE (15:38)
[2021-10-01] MEDS ORDERED: Metoclopramide HCl 10 MG/2 ML VIAL ONE (15:38)
[2021-10-01] MEDS ORDERED: diphenhydrAMINE 50 MG/ML VIAL ONE (15:38)
[2021-10-01 16:11] LABS: ALT (SGPT) 19 U/L (8-55); AST (SGOT) 47 U/L (5-34); Albumin 3.1 g/dL (3.4-4.8); Alkaline Phosphatase 86 U/L (40-110); Anion Gap 14 mmol/L (10-20); BUN (Urea Nitrogen) 6 mg/dL (9.8-20.1); Bilirubin, Total 0.9 mg/dL (0.2-1.2); Calc. Creatinine Clearance 0 mL/min (70-130); Calcium 9.2 mg/dL (7.8-10.44); Carbon Dioxide 27 mmol/L (23-31); Chloride 98 mmol/L (98-107); Glucose 107 mg/dL (80-115); Potassium 3.8 mmol/L (3.5-5.1); Protein, Total 8.1 g/dL (5.8-8.1); Sodium 135 mmol/L (136-145)
== END 2021-10-01 19:35 | disposition home or self-care (01) ==
LOC: ERS 14:09
DX: R53.81 Other malaise (principal); M79.10 Myalgia, unspecified site; R51.9 Headache, unspecified; T50.B95A Adverse effect of other viral vaccines, initial encounter; B02.9 Zoster without complications; I11.0 Hypertensive heart disease with heart failure; I50.9 Heart failure, unspecified; I25.2 Old myocardial infarction; Z86.73 Personal history of transient ischemic attack (TIA), and cerebral infarction without residual deficits
CPT/HCPCS: 36415; 70450; 80053; 84484; 85025; 93005; 96374; 96375; J1200; J2765

== ENCOUNTER 2021-10-06 02:30 | Inpatient (IN) | payer OTHER ==
[2021-10-06] MEDS ORDERED: Morphine 4 MG/ML VIAL ONE (02:54)
[2021-10-06] MEDS ORDERED: Ondansetron PF 4 MG/2 ML Vial ONE (02:54)
[2021-10-06 03:02] LABS: #Eosinphils 0.1 thou/uL (0.0-0.7); #Lymphocytes 2.3 thou/uL (1.20-3.40); #Neutrophils 9.9 thou/uL (1.40-6.50); %Basophils 0.4 % (0.0-1.0); %Eosinophils 0.4 % (0.0-10.0); %Monocytes 7.5 % (0.0-10.0); %Neutrophils 74.7 % (42.0-75.0); Hemoglobin 16.8 g/dL (12.0-16.0); Mean Corpuscular HGB CONC 32.6 g/dL (32.0-36.0); Mean Corpuscular Hemoglobin 30.4 pg (27.0-31.0); Mean Corpuscular Volume 93.3 fL (78.0-98.0); Mean Platelet Volume 9.4 fL (7.4-10.4); Platelet Count 296 thou/uL (130-400); RBC Distribution Width 13.6 % (11.5-14.5); Red Blood Cell (RBC) Count 5.52 mill/uL (4.20-5.40); White Blood Cell (WBC) Count 13.3 thou/uL (4.8-10.8)
[2021-10-06 03:24] LABS: ALT (SGPT) 147 U/L (8-55); AST (SGOT) 503 U/L (5-34); Albumin 3.3 g/dL (3.4-4.8); Alkaline Phosphatase 402 U/L (40-110); Anion Gap 16 mmol/L (10-20); BUN (Urea Nitrogen) 8 mg/dL (9.8-20.1); Bilirubin, Total 2.7 mg/dL (0.2-1.2); Calc. Creatinine Clearance 0 mL/min (70-130); Carbon Dioxide 23 mmol/L (23-31); Chloride 103 mmol/L (98-107); Globulin 5.5 g/dL (2.4-3.5); Glucose 146 mg/dL (80-115); Lipase 193 U/L (8-78); Potassium 3.8 mmol/L (3.5-5.1); Protein, Total 8.8 g/dL (5.8-8.1); Sodium 138 mmol/L (136-145)
[2021-10-06 05:34] LABS: Bilirubin Negative (Negative); Blood, Urine Negative (Negative); Clarity Clear (Clear); Glucose, Urine (Dipstick) Normal (Negative); Ketone, Urine Negative (Negative); Leukocyte Negative Leu/uL (Negative); Nitrite Negative (Negative); Protein, Urine (Dipstick) 10 mg/dL (Neg-Trace); Specific Gravity, Urine 1.025 (1.002-1.036); Urobilinogen Normal mg/dL (Less than 2); pH, Urine 7.5 (5.0-9.0)
[2021-10-06] MEDS ORDERED: Piperacillin/Tazobactam 3.375 GM VIAL ONE (06:47)
[2021-10-06] MEDS ORDERED: Ondansetron PF 4 MG/2 ML Vial IVP PRN (07:47)
[2021-10-06] MEDS ORDERED: Senokot S 8.6-50 MG TAB PO PRN (07:47)
[2021-10-06] MEDS ORDERED: Bisacodyl 5 MG TAB PO PRN (07:47)
[2021-10-06 08:51] LABS: ALT (SGPT) 149 U/L (8-55); AST (SGOT) 437 U/L (5-34); Albumin 2.9 g/dL (3.4-4.8); Alkaline Phosphatase 367 U/L (40-110); Anion Gap 12 mmol/L (10-20); BUN (Urea Nitrogen) 6 mg/dL (9.8-20.1); Bilirubin, Total 2.4 mg/dL (0.2-1.2); Calc. Creatinine Clearance 0 mL/min (70-130); Calcium 8.7 mg/dL (7.8-10.44); Carbon Dioxide 24 mmol/L (23-31); Chloride 105 mmol/L (98-107); Globulin 4.6 g/dL (2.4-3.5); Glucose 111 mg/dL (80-115); Potassium 3.7 mmol/L (3.5-5.1); Protein, Total 7.5 g/dL (5.8-8.1); Sodium 137 mmol/L (136-145)
[2021-10-06] MEDS ORDERED: Enoxaparin Sodium 40 MG/0.4 ML SYRINGE SC SCH ×2 (09:00→21:00)
[2021-10-06 09:09] LABS: Hep B Surf Ag Non-Reactive S/CO (NonReactive)
[2021-10-06 09:10] LABS: Hep A IgM AB Non-Reactive (NonReactive); Hep C IgG Ab Non-Reactive (NonReactive)
[2021-10-06] MEDS ORDERED: Enoxaparin Sodium 40 MG/0.4 ML SYRINGE ONE (10:06)
[2021-10-06 10:29] LABS: #Basophils 0.1 thou/uL (0.0-0.2); #Eosinphils 0.1 thou/uL (0.0-0.7); #Lymphocytes 2.9 thou/uL (1.20-3.40); #Neutrophils 6.9 thou/uL (1.40-6.50); %Basophils 0.5 % (0.0-1.0); %Eosinophils 1.3 % (0.0-10.0); %Lymphocytes 26.2 % (21.0-51.0); %Monocytes 8.8 % (0.0-10.0); %Neutrophils 63.2 % (42.0-75.0); Hemoglobin 14.6 g/dL (12.0-16.0); Mean Corpuscular HGB CONC 33.4 g/dL (32.0-36.0); Mean Corpuscular Hemoglobin 30.5 pg (27.0-31.0); Mean Corpuscular Volume 91.2 fL (78.0-98.0); Mean Platelet Volume 9.2 fL (7.4-10.4); Platelet Count 267 thou/uL (130-400); RBC Distribution Width 13.7 % (11.5-14.5); Red Blood Cell (RBC) Count 4.79 mill/uL (4.20-5.40); White Blood Cell (WBC) Count 10.9 thou/uL (4.8-10.8)
[2021-10-06] MEDS: Sodium Chloride 0.9% 1,000 ML IV SCH ×2 (10:30→16:14)
[2021-10-06 11:14] LABS: HBSAg Index 0.29 S/CO (0-0.99); Hep C Index 0.29 S/CO (0-0.79)
[2021-10-06 11:15] LABS: Hep A IgM S/CO 0.13 S/CO (0-0.79)
[2021-10-06 11:17] LABS: HBCM Index 0.11 S/CO (0-0.79); Hepatitis B Core IgM Abs Non-Reactive (NonReactive)
[2021-10-06] MEDS ORDERED: Ketorolac Tromethamine 30 MG/ML VIAL IVP PRN (13:24)
[2021-10-06] MEDS ORDERED: Ketorolac Tromethamine 30 MG/ML VIAL IVP SCH (13:30)
[2021-10-06 13:57] LABS: SARS-CoV-2 NAA Rapid Test Not Detected (NotDetected)
[2021-10-06] MEDS ORDERED: Scopolamine 1.5 mg/72 hour Patch TD SCH (14:00)
[2021-10-06] MEDS ORDERED: Ondansetron ORAL SOLN. 4 MG/5 ML UDCUP PO PRN (14:42)
[2021-10-06] MEDS ORDERED: Ondansetron ODT 8 MG TAB SL PRN (14:42)
[2021-10-06] MEDS ORDERED: tiZANidine HCl 4 MG TAB PO PRN (15:29)
[2021-10-06] MEDS: traMADol HCl 50 MG TAB PO PRN (16:13)
[2021-10-06] MEDS: Piperacillin/Tazobactam 3.375 GM in Sodium Chloride 0.9% 100 ML IVPB SCH (18:02)
[2021-10-06 18:33] VITALS: BMI 36.4
[2021-10-06] MEDS: Pregabalin 50 MG CAP PO SCH (20:54)
[2021-10-06] MEDS: Carvedilol 6.25 MG TAB PO SCH (20:55)
[2021-10-07] MEDS: Piperacillin/Tazobactam 3.375 GM in Sodium Chloride 0.9% 100 ML IVPB SCH ×2 (00:26→06:17)
[2021-10-07] MEDS: traMADol HCl 50 MG TAB PO PRN ×3 (00:28→14:56)
[2021-10-07 06:08] LABS: Hemoglobin 12.7 g/dL (12.0-16.0); Mean Corpuscular HGB CONC 32.1 g/dL (32.0-36.0); Mean Corpuscular Hemoglobin 29.9 pg (27.0-31.0); Mean Corpuscular Volume 93.3 fL (78.0-98.0); Mean Platelet Volume 9.1 fL (7.4-10.4); Platelet Count 240 thou/uL (130-400); RBC Distribution Width 13.7 % (11.5-14.5); Red Blood Cell (RBC) Count 4.25 mill/uL (4.20-5.40); White Blood Cell (WBC) Count 7.5 thou/uL (4.8-10.8)
[2021-10-07] MEDS: Sodium Chloride 0.9% 1,000 ML IV SCH ×2 (06:18→12:12)
[2021-10-07 06:21] LABS: Albumin 2.5 g/dL (3.4-4.8)
[2021-10-07 06:23] LABS: Calcium 8.8 mg/dL (7.8-10.44); Chloride 107 mmol/L (98-107); Potassium 3.4 mmol/L (3.5-5.1); Sodium 140 mmol/L (136-145)
[2021-10-07 06:24] LABS: Glucose 79 mg/dL (80-115); Protein, Total 6.5 g/dL (5.8-8.1)
[2021-10-07 06:25] LABS: Anion Gap 12 mmol/L (10-20); Carbon Dioxide 24 mmol/L (23-31)
[2021-10-07 06:26] LABS: Bilirubin, Total 1.9 mg/dL (0.2-1.2)
[2021-10-07 06:27] LABS: Alkaline Phosphatase 261 U/L (40-110)
[2021-10-07 06:28] LABS: BUN (Urea Nitrogen) 12 mg/dL (9.8-20.1)
[2021-10-07 06:29] LABS: AST (SGOT) 185 U/L (5-34); Calc. Creatinine Clearance 81 mL/min (70-130)
[2021-10-07 06:30] LABS: ALT (SGPT) 91 U/L (8-55)
[2021-10-07 07:08] LABS: Band 5 % (5-11); Eosinophils 10 % (0-10); Lymphocytes 38 % (21-51); Monocytes 7 % (0-10); Neutrophil 40 % (42-75)
[2021-10-07 07:09] LABS: MDiff Complete? YES; Platelet Morphology Comment Appears Adequate
[2021-10-07] MEDS ORDERED: EPINEPHrine 1 MG/ML AMP ONE (07:22)
[2021-10-07] MEDS ORDERED: Bupivacaine PF 0.5% 30 ML VIAL ONE (07:22)
[2021-10-07] MEDS ORDERED: Iothalamate Meglumine 60% 50 ML VIAL FS ONE (07:38)
[2021-10-07] MEDS ORDERED: Fentanyl 100 MCG/2 ML VIAL ONE ×2 (08:16→10:15)
[2021-10-07] MEDS ORDERED: Promethazine HCl 25 MG/ML VIAL ONE (08:16)
[2021-10-07] MEDS ORDERED: Lidocaine 1% PF 5 ML VIAL ONE (08:28)
[2021-10-07] MEDS ORDERED: PROPOFOL 200 MG/20 ML VIAL ONE (08:28)
[2021-10-07] MEDS ORDERED: Dexamethasone 20 MG/5 ML VIAL ONE (08:28)
[2021-10-07] MEDS ORDERED: Rocuronium Bromide 10 MG/ML (10ML VIAL) ONE (08:28)
[2021-10-07] MEDS ORDERED: Esmolol 100 MG/10 ML VIAL ONE (08:28)
[2021-10-07] MEDS ORDERED: ePHEDrine 50 MG/ML VIAL ONE (08:28)
[2021-10-07] MEDS ORDERED: Ondansetron PF 4 MG/2 ML Vial ONE (08:28)
[2021-10-07] MEDS ORDERED: Acetaminophen 500 MG TAB PO PRN (08:35)
[2021-10-07] MEDS ORDERED: Ibuprofen 600 MG TAB PO PRN (08:35)
[2021-10-07] MEDS: Pregabalin 50 MG CAP PO SCH ×2 (08:39→14:25)
[2021-10-07] MEDS ORDERED: FLU VACC QS2021-22(6MOS UP)/PF 60 MCG/0.5 ML SYRINGE IM ONE (09:00)
[2021-10-07] MEDS ORDERED: Aspirin Chewable 81 MG TAB PO SCH (09:00)
[2021-10-07] MEDS ORDERED: Pantoprazole 40 MG GRANULES PACKET PO SCH (09:00)
[2021-10-07] MEDS ORDERED: Succinylcholine 200 MG/10 ml SYRINGE FS ONE (09:08)
[2021-10-07] MEDS ORDERED: SUGAMMADEX SODIUM 200 MG/2 ML VIAL ONE (09:09)
[2021-10-07] MEDS ORDERED: Xylocaine 1% w/ Epi 1:100K 10 ML VIAL ONE (09:22)
[2021-10-07] MEDS ORDERED: Promethazine HCl 25 MG/ML VIAL IVPB PRN (09:26)
[2021-10-07] MEDS ORDERED: Ondansetron HCl/PF 4 MG/2 ML Vial IVP PRN (09:26)
[2021-10-07] MEDS ORDERED: Promethazine HCl 25 MG/ML VIAL IM PRN (09:26)
[2021-10-07] MEDS ORDERED: Acetaminophen 500 MG TAB PO SCH (10:30)
[2021-10-07] MEDS ORDERED: Potassium Chloride 20 MEQ TAB PO SCH (10:45)
[2021-10-07] MEDS: Carvedilol 6.25 MG TAB PO SCH (11:09)
[2021-10-07 15:58] VITALS: BP 148/90; TEMP 97.3
[2021-10-07] MEDS ORDERED: Morphine ER 15 MG TAB PO PRN (16:49)
[2021-10-07] MEDS ORDERED: Ketorolac Tromethamine 30 MG/ML VIAL IVP SCH (17:15)
[2021-10-07] MEDS ORDERED: HYDROmorphone 0.5 MG/0.5 ML SYRINGE SLOW IVP SCH (17:15)
[2021-10-07] MEDS ORDERED: traMADol HCl 50 MG TAB PO PRN (17:21)
[2021-10-09] MEDS ORDERED: Apixaban 5 MG TAB PO SCH (09:00)
== END 2021-10-07 20:15 | disposition home or self-care (01) | DRG 418 ==
LOC: ERS 02:30 → SUATTDRO 02:30 → ERHOLD 06:57 → SURG A 13:53 → NEURO 15:19
PROVIDERS: ADMIT Internal Medicine; ATTEND Internal Medicine
PROC: 0FT44ZZ Resection of Gallbladder, Percutaneous Endoscopic Approach (ICD-10-PCS; principal; 2021-10-07)
PROC: BF131ZZ Fluoroscopy of Gallbladder and Bile Ducts using Low Osmolar Contrast (ICD-10-PCS; 2021-10-07)
PROC: 0HC4XZZ Extirpation of Matter from Neck Skin, External Approach (ICD-10-PCS; 2021-10-07)
DX: K80.00 Calculus of gallbladder with acute cholecystitis without obstruction (principal); I69.351 Hemiplegia and hemiparesis following cerebral infarction affecting right dominant side; T81.500A Unspecified complication of foreign body accidentally left in body following surgical operation, initial encounter; Z20.822 Contact with and (suspected) exposure to COVID-19; G89.29 Other chronic pain; M54.9 Dorsalgia, unspecified; E78.5 Hyperlipidemia, unspecified; E88.81 Metabolic syndrome and other insulin resistance; E66.01 Morbid (severe) obesity due to excess calories; R74.01 Elevation of levels of liver transaminase levels; Y83.8 Other surgical procedures as the cause of abnormal reaction of the patient, or of later complication, without mention of misadventure at the time of the procedure; Z86.711 Personal history of pulmonary embolism; Z95.1 Presence of aortocoronary bypass graft; Z90.89 Acquired absence of other organs; Z68.35 Body mass index [BMI] 35.0-35.9, adult; Z91.013 Allergy to seafood; Z79.899 Other long term (current) drug therapy; Z79.82 Long term (current) use of aspirin; Z79.01 Long term (current) use of anticoagulants; N18.9 Chronic kidney disease, unspecified
CPT/HCPCS: 36415; 47532; 74177; 74181; 76705; 80053; 80074; 81003; 83605; 83690; 84145; 85007; 85025; 85027; 87040; 88304; 90471; 90686; 93005; 96365; 96375; C1713; G0008; J0171; J1100; J1610; J1650; J1885; J2270; J2405; J2543; J2550; J2704; J3010; J3490; J7050; Q9961-U8; S0020; U0002

== ENCOUNTER 2021-11-22 22:44 | Inpatient (IN) | payer OTHER ==
[2021-11-22 23:28] LABS: #Eosinphils 0.1 thou/uL (0.0-0.7); #Lymphocytes 2.5 thou/uL (1.20-3.40); #Monocytes 0.8 thou/uL (0.11-0.59); #Neutrophils 4.8 thou/uL (1.40-6.50); %Basophils 0.5 % (0.0-1.0); %Eosinophils 1.5 % (0.0-10.0); %Lymphocytes 30.2 % (21.0-51.0); %Monocytes 9.5 % (0.0-10.0); %Neutrophils 58.3 % (42.0-75.0); Hemoglobin 15.4 g/dL (12.0-16.0); Mean Corpuscular HGB CONC 32.6 g/dL (32.0-36.0); Mean Corpuscular Hemoglobin 30.1 pg (27.0-31.0); Mean Corpuscular Volume 92.5 fL (78.0-98.0); Mean Platelet Volume 10.8 fL (7.4-10.4); Platelet Count 233 thou/uL (130-400); White Blood Cell (WBC) Count 8.3 thou/uL (4.8-10.8)
[2021-11-22] MEDS ORDERED: Ondansetron PF 4 MG/2 ML Vial ONE (23:44)
[2021-11-22] MEDS ORDERED: Morphine 4 MG/ML VIAL ONE (23:44)
[2021-11-22 23:47] LABS: ALT (SGPT) 21 U/L (8-55); AST (SGOT) 42 U/L (5-34); Albumin 3.3 g/dL (3.4-4.8); Alkaline Phosphatase 95 U/L (40-110); Anion Gap 16 mmol/L (10-20); BUN (Urea Nitrogen) 8 mg/dL (9.8-20.1); Bilirubin, Total 1.2 mg/dL (0.2-1.2); Calc. Creatinine Clearance 0 mL/min (70-130); Calcium 9.1 mg/dL (7.8-10.44); Carbon Dioxide 30 mmol/L (23-31); Chloride 100 mmol/L (98-107); Globulin 4.3 g/dL (2.4-3.5); Glucose 109 mg/dL (80-115); Potassium 3.1 mmol/L (3.5-5.1); Protein, Total 7.6 g/dL (5.8-8.1); Sodium 143 mmol/L (136-145)
[2021-11-23] MEDS ORDERED: Nitroglycerin 2% Ointment 1 INCH/1 GM Packet ONE (03:20)
[2021-11-23 05:21] LABS: Troponin I 0.013 ng/mL (< 0.028)
[2021-11-23 06:20] LABS: SARS-CoV-2 NAA Rapid Test Not Detected (NotDetected)
[2021-11-23] MEDS ORDERED: Acetaminophen 500 MG TAB PO SCH (08:45)
[2021-11-23] MEDS ORDERED: Potassium Chloride 20 MEQ TAB PO SCH (08:45)
[2021-11-23] MEDS ORDERED: Non-Formulary Item 1 EACH (Pregabalin [Pregabalin] 100 MG Capsule) PO SCH ×2 (09:00)
[2021-11-23] MEDS ORDERED: Iopamidol 370 76% 100 ML VIAL ONE (09:08)
[2021-11-23 09:09] LABS: Troponin I Less than 0.010 ng/mL (< 0.028)
[2021-11-23] MEDS: traMADol HCl 50 MG TAB PO PRN ×2 (09:42→17:13)
[2021-11-23] MEDS: Magnesium Oxide 400 MG TAB PO SCH (09:42)
[2021-11-23] MEDS: Aspirin Chewable 81 MG TAB PO SCH (09:42)
[2021-11-23] MEDS: Carvedilol 6.25 MG TAB PO SCH ×2 (09:43→21:00)
[2021-11-23] MEDS: Atorvastatin Calcium 40 MG TAB PO SCH (09:43)
[2021-11-23] MEDS: Pregabalin 50 MG CAP PO SCH ×3 (09:44→20:58)
[2021-11-23] MEDS ORDERED: Ondansetron PF 4 MG/2 ML Vial IVP PRN (09:55)
[2021-11-23] MEDS ORDERED: Acetaminophen 325 MG TAB PO PRN (09:55)
[2021-11-23] MEDS ORDERED: Lidocaine 2% Viscous Solution 20 ML, Aluminum & Magnesium Hydroxide 30 ML, Donnatal Eli... SSW SCH (10:00)
[2021-11-23 10:02] VITALS: BMI 32.0
[2021-11-23] MEDS ORDERED: Morphine 4 MG/ML VIAL SLOW IVP PRN (10:03)
[2021-11-23] MEDS: Lactated Ringer's 1,000 ML IV SCH ×2 (11:32→20:59)
[2021-11-23] MEDS: Acetaminophen 325 MG TAB PO SCH (20:57)
[2021-11-23] MEDS: Famotidine/PF 20 mg/2ml Vial SLOW IVP SCH (20:58)
[2021-11-23] MEDS ORDERED: Carvedilol 6.25 MG TAB PO SCH (21:00)
[2021-11-24] MEDS: traMADol HCl 50 MG TAB PO PRN ×4 (05:02→22:47)
[2021-11-24] MEDS: Magnesium Oxide 400 MG TAB PO SCH (08:36)
[2021-11-24] MEDS: Pregabalin 50 MG CAP PO SCH ×3 (08:37→22:47)
[2021-11-24] MEDS: Acetaminophen 325 MG TAB PO SCH ×3 (08:37→22:44)
[2021-11-24] MEDS: Potassium Chloride 20 MEQ TAB PO SCH (08:37)
[2021-11-24] MEDS: Atorvastatin Calcium 40 MG TAB PO SCH (08:37)
[2021-11-24] MEDS: Aspirin Chewable 81 MG TAB PO SCH (08:37)
[2021-11-24] MEDS: Carvedilol 6.25 MG TAB PO SCH ×2 (08:38→22:47)
[2021-11-24] MEDS: Famotidine/PF 20 mg/2ml Vial SLOW IVP SCH ×2 (08:38→22:47)
[2021-11-24] MEDS ORDERED: Rivaroxaban 10 MG TAB PO SCH (09:00)
[2021-11-24 10:05] LABS: #Basophils 0.1 thou/uL (0.0-0.2); #Eosinphils 0.2 thou/uL (0.0-0.7); #Lymphocytes 1.9 thou/uL (1.20-3.40); #Monocytes 0.5 thou/uL (0.11-0.59); #Neutrophils 3.1 thou/uL (1.40-6.50); %Basophils 1.1 % (0.0-1.0); %Eosinophils 3.1 % (0.0-10.0); %Lymphocytes 32.4 % (21.0-51.0); %Monocytes 8.7 % (0.0-10.0); %Neutrophils 54.7 % (42.0-75.0); Hemoglobin 15.1 g/dL (12.0-16.0); Mean Corpuscular HGB CONC 32.3 g/dL (32.0-36.0); Mean Corpuscular Volume 95.9 fL (78.0-98.0); Mean Platelet Volume 10.7 fL (7.4-10.4); Platelet Count 188 thou/uL (130-400); Red Blood Cell (RBC) Count 4.88 mill/uL (4.20-5.40); White Blood Cell (WBC) Count 5.7 thou/uL (4.8-10.8)
[2021-11-24 10:31] LABS: Anion Gap 14 mmol/L (10-20); BUN (Urea Nitrogen) 10 mg/dL (9.8-20.1); Calc. Creatinine Clearance 80 mL/min (70-130); Calcium 9.1 mg/dL (7.8-10.44); Carbon Dioxide 29 mmol/L (23-31); Chloride 99 mmol/L (98-107); Glucose 99 mg/dL (80-115); Potassium 3.3 mmol/L (3.5-5.1); Sodium 139 mmol/L (136-145)
[2021-11-24] MEDS: Lactated Ringer's 1,000 ML IV SCH (11:42)
[2021-11-25] MEDS: Lactated Ringer's 1,000 ML IV SCH ×2 (00:25→17:54)
[2021-11-25] MEDS: Magnesium Oxide 400 MG TAB PO SCH (08:22)
[2021-11-25] MEDS: Famotidine/PF 20 mg/2ml Vial SLOW IVP SCH ×2 (08:22→20:44)
[2021-11-25] MEDS: Carvedilol 6.25 MG TAB PO SCH ×2 (08:22→20:43)
[2021-11-25] MEDS: Potassium Chloride 20 MEQ TAB PO SCH (08:22)
[2021-11-25] MEDS: Pregabalin 50 MG CAP PO SCH ×3 (08:22→20:44)
[2021-11-25] MEDS: Acetaminophen 325 MG TAB PO SCH ×3 (08:23→20:45)
[2021-11-25] MEDS: Atorvastatin Calcium 40 MG TAB PO SCH (08:23)
[2021-11-25] MEDS: Aspirin Chewable 81 MG TAB PO SCH (08:23)
[2021-11-25] MEDS: traMADol HCl 50 MG TAB PO PRN (20:46)
[2021-11-26] MEDS: Lactated Ringer's 1,000 ML IV SCH ×2 (03:21→19:38)
[2021-11-26] MEDS ORDERED: Ketamine 50 MG/ML (10ML VIAL) ONE (07:35)
[2021-11-26] MEDS ORDERED: PROPOFOL 200 MG/20 ML VIAL ONE (08:21)
[2021-11-26] MEDS ORDERED: Pantoprazole 40 MG VIAL IVP SCH (09:00)
[2021-11-26] MEDS: Atorvastatin Calcium 40 MG TAB PO SCH (10:10)
[2021-11-26] MEDS: Acetaminophen 325 MG TAB PO SCH ×2 (10:11→14:56)
[2021-11-26] MEDS: Carvedilol 6.25 MG TAB PO SCH (10:12)
[2021-11-26] MEDS: Aspirin Chewable 81 MG TAB PO SCH (10:12)
[2021-11-26] MEDS: Pregabalin 50 MG CAP PO SCH ×2 (10:13→14:57)
[2021-11-26] MEDS: Potassium Chloride 20 MEQ TAB PO SCH (10:14)
[2021-11-26] MEDS: Magnesium Oxide 400 MG TAB PO SCH (10:14)
[2021-11-26 10:35] LABS: #Eosinphils 0.3 thou/uL (0.0-0.7); #Lymphocytes 2.7 thou/uL (1.20-3.40); #Monocytes 0.4 thou/uL (0.11-0.59); #Neutrophils 3.2 thou/uL (1.40-6.50); %Basophils 0.4 % (0.0-1.0); %Eosinophils 4.5 % (0.0-10.0); %Lymphocytes 40.4 % (21.0-51.0); %Monocytes 6.2 % (0.0-10.0); %Neutrophils 48.4 % (42.0-75.0); Hemoglobin 15.1 g/dL (12.0-16.0); Mean Corpuscular HGB CONC 31.7 g/dL (32.0-36.0); Mean Corpuscular Hemoglobin 30.2 pg (27.0-31.0); Mean Corpuscular Volume 95.5 fL (78.0-98.0); Mean Platelet Volume 10.6 fL (7.4-10.4); Platelet Count 161 thou/uL (130-400); RBC Distribution Width 13.8 % (11.5-14.5); Red Blood Cell (RBC) Count 4.98 mill/uL (4.20-5.40); White Blood Cell (WBC) Count 6.6 thou/uL (4.8-10.8)
[2021-11-26 10:56] LABS: Anion Gap 11 mmol/L (10-20); BUN (Urea Nitrogen) 5 mg/dL (9.8-20.1); Calc. Creatinine Clearance 103 mL/min (70-130); Calcium 8.8 mg/dL (7.8-10.44); Carbon Dioxide 28 mmol/L (23-31); Chloride 107 mmol/L (98-107); Glucose 73 mg/dL (80-115); Potassium 4.3 mmol/L (3.5-5.1); Sodium 142 mmol/L (136-145)
[2021-11-26 16:01] VITALS: BP 142/88; TEMP 98.3
[2021-11-27] MEDS ORDERED: Rivaroxaban 10 MG TAB PO SCH (09:00)
== END 2021-11-26 19:16 | disposition home or self-care (01) | DRG 384 ==
LOC: ERS 22:44 → NEURO 11-23 04:07 → OBSVTOIN 11-26 09:56
PROVIDERS: ADMIT Internal Medicine; ATTEND Internal Medicine
PROC: 0DB98ZX Excision of Duodenum, Via Natural or Artificial Opening Endoscopic, Diagnostic (ICD-10-PCS; principal; 2021-11-26)
PROC: 0DB68ZX Excision of Stomach, Via Natural or Artificial Opening Endoscopic, Diagnostic (ICD-10-PCS; 2021-11-26)
DX: K27.9 Peptic ulcer, site unspecified, unspecified as acute or chronic, without hemorrhage or perforation (principal); I69.351 Hemiplegia and hemiparesis following cerebral infarction affecting right dominant side; E78.5 Hyperlipidemia, unspecified; I25.10 Atherosclerotic heart disease of native coronary artery without angina pectoris; G89.29 Other chronic pain; E87.6 Hypokalemia; E11.9 Type 2 diabetes mellitus without complications; E66.9 Obesity, unspecified; Z20.822 Contact with and (suspected) exposure to COVID-19; M54.9 Dorsalgia, unspecified; I50.9 Heart failure, unspecified; I11.0 Hypertensive heart disease with heart failure; Z91.013 Allergy to seafood; Z79.899 Other long term (current) drug therapy; Z79.82 Long term (current) use of aspirin; Z79.01 Long term (current) use of anticoagulants; Z86.711 Personal history of pulmonary embolism; Z95.1 Presence of aortocoronary bypass graft; Z90.89 Acquired absence of other organs; Z99.3 Dependence on wheelchair; Z68.32 Body mass index [BMI] 32.0-32.9, adult
CPT/HCPCS: 0240U; 36415; 71045; 71275; 74177; 80048; 80053; 83690; 84484; 85025; 88305; 88312; 90471; 90732; 93005; 96374; 96375; 96376; C9113; G0009; G0378; J2270; J2405; J2704; J7120; Q9967; S0028

== ENCOUNTER 2022-04-25 20:17 | Observation (INO) | payer MEDICARE ==
[~2022-04-25 20:17] MED LIST: Iopamidol-370 76% 500 ML 1 ML ONE
[2022-04-25 20:51] LABS: #Basophils 0.1 thou/uL (0.0-0.2); #Eosinphils 0.1 thou/uL (0.0-0.7); #Lymphocytes 2.9 thou/uL (1.20-3.40); #Monocytes 1.4 thou/uL (0.11-0.59); #Neutrophils 14.8 thou/uL (1.40-6.50); %Basophils 0.4 % (0.0-1.0); %Eosinophils 0.5 % (0.0-10.0); %Lymphocytes 15.2 % (21.0-51.0); %Monocytes 7.1 % (0.0-10.0); %Neutrophils 76.7 % (42.0-75.0); Hemoglobin 17.3 g/dL (12.0-16.0); Mean Corpuscular HGB CONC 32.9 g/dL (32.0-36.0); Mean Corpuscular Hemoglobin 31.8 pg (27.0-31.0); Mean Corpuscular Volume 96.7 fL (78.0-98.0); Mean Platelet Volume 9.9 fL (7.4-10.4); Platelet Count 310 thou/uL (130-400); RBC Distribution Width 12.6 % (11.5-14.5); Red Blood Cell (RBC) Count 5.45 mill/uL (4.20-5.40); White Blood Cell (WBC) Count 19.3 thou/uL (4.8-10.8)
[2022-04-25 21:12] LABS: ALT (SGPT) 18 U/L (8-55); AST (SGOT) 22 U/L (5-34); Alkaline Phosphatase 107 U/L (40-110); Anion Gap 21 mmol/L (10-20); BUN (Urea Nitrogen) 12 mg/dL (9.8-20.1); Calc. Creatinine Clearance 0 mL/min (70-130); Calcium 10.2 mg/dL (7.8-10.44); Carbon Dioxide 21 mmol/L (23-31); Chloride 103 mmol/L (98-107); Estimated GFR 66; Glucose 116 mg/dL (80-115); Lipase 15 U/L (8-78); Potassium 3.6 mmol/L (3.5-5.1); Sodium 141 mmol/L (136-145)
[2022-04-25 21:34] LABS: CKMB 0.7 ng/mL (0-6.6)
[2022-04-25] MEDS ORDERED: Ondansetron PF 4 MG/2 ML Vial ONE (21:37)
[2022-04-26 00:44] LABS: Bacteria/HPF 4+ HPF (None Seen); Bilirubin Negative (Negative); Blood, Urine Trace (Negative); Clarity Turbid (Clear); Glucose, Urine (Dipstick) Normal (Negative); Ketone, Urine 10 mg/dL (Negative); Leukocyte 500 Leu/uL (Negative); Nitrite 2+ (Negative); Protein, Urine (Dipstick) 30 mg/dL (Neg-Trace); RBC/HPF 0-3 HPF (0-3); Specific Gravity, Urine 1.039 (1.002-1.036); Squamous Epithelial 0-3 HPF (0-3); Urobilinogen Normal mg/dL (Less than 2); WBC/HPF Greater than 50 HPF (0-3); pH, Urine 5.5 (5.0-9.0)
[2022-04-26 01:27] LABS: Troponin I 0.038 ng/mL (< 0.028)
[2022-04-26 03:35] LABS: Troponin I 0.096 ng/mL (< 0.028)
[2022-04-26] MEDS ORDERED: Morphine 4 MG/ML VIAL ONE (04:09)
[2022-04-26] MEDS ORDERED: Morphine 4 MG/ML VIAL SLOW IVP SCH (04:15)
[2022-04-26 06:21] LABS: #Basophils 0.1 thou/uL (0.0-0.2); #Eosinphils 0.1 thou/uL (0.0-0.7); #Lymphocytes 2.8 thou/uL (1.20-3.40); #Monocytes 1.4 thou/uL (0.11-0.59); #Neutrophils 13.3 thou/uL (1.40-6.50); %Basophils 0.4 % (0.0-1.0); %Eosinophils 0.4 % (0.0-10.0); %Lymphocytes 15.8 % (21.0-51.0); %Monocytes 7.7 % (0.0-10.0); %Neutrophils 75.7 % (42.0-75.0); Hemoglobin 15.7 g/dL (12.0-16.0); Mean Corpuscular HGB CONC 33.3 g/dL (32.0-36.0); Mean Corpuscular Hemoglobin 32.4 pg (27.0-31.0); Mean Corpuscular Volume 97.2 fL (78.0-98.0); Mean Platelet Volume 10.3 fL (7.4-10.4); Platelet Count 250 thou/uL (130-400); RBC Distribution Width 12.6 % (11.5-14.5); Red Blood Cell (RBC) Count 4.84 mill/uL (4.20-5.40); White Blood Cell (WBC) Count 17.6 thou/uL (4.8-10.8)
[2022-04-26] MEDS ORDERED: Ondansetron PF 4 MG/2 ML Vial IVP PRN (06:34)
[2022-04-26 06:48] LABS: Anion Gap 18 mmol/L (10-20); BUN (Urea Nitrogen) 11 mg/dL (9.8-20.1); Calc. Creatinine Clearance 115 mL/min (70-130); Calcium 9.1 mg/dL (7.8-10.44); Carbon Dioxide 21 mmol/L (23-31); Chloride 103 mmol/L (98-107); Estimated GFR 81; Glucose 100 mg/dL (80-115); Potassium 3.6 mmol/L (3.5-5.1); Sodium 138 mmol/L (136-145)
[2022-04-26 06:50] LABS: Troponin I 0.041 ng/mL (< 0.028)
[2022-04-26] MEDS ORDERED: cefTRIAXone\\ROCEPHIN 1 GM VIAL ONE (07:50)
[2022-04-26] MEDS: cefTRIAXone\\ROCEPHIN 1 GM in Sodium Chloride 0.9% 100 ML IVPB SCH (08:29)
[2022-04-26] MEDS ORDERED: Rivaroxaban 10 MG TAB PO SCH (09:00)
[2022-04-26] MEDS ORDERED: Acetaminophen 325 MG TAB ONE (09:18)
[2022-04-26] MEDS ORDERED: Buprenorphine Hcl [Belbuca] 150 MCG Film FS PRN (13:10)
[2022-04-26 16:30] VITALS: BMI 32.3
[2022-04-26] MEDS: Pregabalin 50 MG CAP PO SCH ×2 (17:29→20:06)
[2022-04-26] MEDS: Morphine ER 15 MG TAB PO PRN (20:06)
[2022-04-26] MEDS ORDERED: Carvedilol 6.25 MG TAB PO SCH (21:00)
[2022-04-26] MEDS: tiZANidine HCl 4 MG TAB PO PRN (22:18)
[2022-04-26] MEDS: Acetaminophen 325 MG TAB PO PRN (23:08)
[2022-04-27 04:27] LABS: #Basophils 0.1 thou/uL (0.0-0.2); #Eosinphils 0.3 thou/uL (0.0-0.7); #Lymphocytes 3.6 thou/uL (1.20-3.40); #Neutrophils 7.1 thou/uL (1.40-6.50); %Basophils 0.7 % (0.0-1.0); %Eosinophils 2.3 % (0.0-10.0); %Monocytes 8.5 % (0.0-10.0); %Neutrophils 58.4 % (42.0-75.0); Hemoglobin 13.7 g/dL (12.0-16.0); Mean Corpuscular HGB CONC 32.8 g/dL (32.0-36.0); Mean Corpuscular Hemoglobin 32.5 pg (27.0-31.0); Mean Corpuscular Volume 99.1 fL (78.0-98.0); Mean Platelet Volume 10.3 fL (7.4-10.4); Platelet Count 199 thou/uL (130-400); RBC Distribution Width 12.6 % (11.5-14.5); Red Blood Cell (RBC) Count 4.21 mill/uL (4.20-5.40); White Blood Cell (WBC) Count 12.1 thou/uL (4.8-10.8)
[2022-04-27 04:49] LABS: Anion Gap 11 mmol/L (10-20); BUN (Urea Nitrogen) 11 mg/dL (9.8-20.1); Calc. Creatinine Clearance 65 mL/min (70-130); Calcium 8.5 mg/dL (7.8-10.44); Carbon Dioxide 27 mmol/L (23-31); Chloride 106 mmol/L (98-107); Estimated GFR 47; Glucose 133 mg/dL (80-115); Potassium 3.4 mmol/L (3.5-5.1); Sodium 141 mmol/L (136-145)
[2022-04-27] MEDS ORDERED: Sodium Chloride 0.9% 500 ML IV SCH (05:15)
[2022-04-27] MEDS ORDERED: Sodium Chloride 0.9% 1,000 ML IV SCH (06:00)
[2022-04-27] MEDS ORDERED: Potassium Chloride 20 MEQ TAB PO SCH (07:30)
[2022-04-27] MEDS: Pregabalin 50 MG CAP PO SCH ×3 (11:22→21:11)
[2022-04-27] MEDS: cefTRIAXone\\ROCEPHIN 1 GM in Sodium Chloride 0.9% 100 ML IVPB SCH (11:22)
[2022-04-27] MEDS: Morphine ER 15 MG TAB PO PRN ×2 (11:23→21:11)
[2022-04-27] MEDS: Aspirin Chewable 81 MG TAB PO SCH (11:23)
[2022-04-27] MEDS: tiZANidine HCl 4 MG TAB PO PRN (21:11)
[2022-04-28 05:08] LABS: #Eosinphils 0.3 thou/uL (0.0-0.7); #Lymphocytes 2.7 thou/uL (1.20-3.40); #Monocytes 0.6 thou/uL (0.11-0.59); #Neutrophils 6.1 thou/uL (1.40-6.50); %Basophils 0.4 % (0.0-1.0); %Eosinophils 2.8 % (0.0-10.0); %Lymphocytes 27.9 % (21.0-51.0); %Monocytes 6.1 % (0.0-10.0); %Neutrophils 62.8 % (42.0-75.0); Hemoglobin 13.8 g/dL (12.0-16.0); Mean Corpuscular HGB CONC 32.5 g/dL (32.0-36.0); Mean Corpuscular Volume 98.5 fL (78.0-98.0); Mean Platelet Volume 10.3 fL (7.4-10.4); Platelet Count 169 thou/uL (130-400); RBC Distribution Width 12.4 % (11.5-14.5); Red Blood Cell (RBC) Count 4.32 mill/uL (4.20-5.40); White Blood Cell (WBC) Count 9.8 thou/uL (4.8-10.8)
[2022-04-28 05:37] LABS: Anion Gap 13 mmol/L (10-20); BUN (Urea Nitrogen) 8 mg/dL (9.8-20.1); Calc. Creatinine Clearance 86 mL/min (70-130); Calcium 8.2 mg/dL (7.8-10.44); Carbon Dioxide 24 mmol/L (23-31); Chloride 107 mmol/L (98-107); Estimated GFR 65; Glucose 122 mg/dL (80-115); Potassium 3.2 mmol/L (3.5-5.1); Sodium 141 mmol/L (136-145)
[2022-04-28] MEDS: Pregabalin 50 MG CAP PO SCH ×3 (10:17→21:31)
[2022-04-28] MEDS: Morphine ER 15 MG TAB PO PRN (10:18)
[2022-04-28] MEDS: Aspirin Chewable 81 MG TAB PO SCH (10:19)
[2022-04-28] MEDS: cefTRIAXone\\ROCEPHIN 1 GM in Sodium Chloride 0.9% 100 ML IVPB SCH (10:19)
[2022-04-28] MEDS ORDERED: Potassium Chloride 20 MEQ TAB PO SCH (11:45)
[2022-04-28] MEDS: Acetaminophen 325 MG TAB PO PRN (16:50)
[2022-04-29] MEDS: Morphine ER 15 MG TAB PO PRN (01:13)
[2022-04-29 04:34] LABS: #Eosinphils 0.3 thou/uL (0.0-0.7); #Lymphocytes 2.5 thou/uL (1.20-3.40); #Monocytes 0.6 thou/uL (0.11-0.59); #Neutrophils 4.4 thou/uL (1.40-6.50); %Basophils 0.3 % (0.0-1.0); %Eosinophils 4.2 % (0.0-10.0); %Lymphocytes 32.1 % (21.0-51.0); %Monocytes 7.2 % (0.0-10.0); %Neutrophils 56.2 % (42.0-75.0); Hemoglobin 13.3 g/dL (12.0-16.0); Mean Corpuscular HGB CONC 32.8 g/dL (32.0-36.0); Mean Corpuscular Hemoglobin 32.2 pg (27.0-31.0); Mean Corpuscular Volume 98.1 fL (78.0-98.0); Mean Platelet Volume 10.1 fL (7.4-10.4); Platelet Count 158 thou/uL (130-400); RBC Distribution Width 12.5 % (11.5-14.5); Red Blood Cell (RBC) Count 4.14 mill/uL (4.20-5.40); White Blood Cell (WBC) Count 7.9 thou/uL (4.8-10.8)
[2022-04-29 04:59] LABS: Anion Gap 11 mmol/L (10-20); BUN (Urea Nitrogen) 6 mg/dL (9.8-20.1); Calc. Creatinine Clearance 94 mL/min (70-130); Calcium 8.4 mg/dL (7.8-10.44); Carbon Dioxide 26 mmol/L (23-31); Chloride 110 mmol/L (98-107); Estimated GFR 67; Glucose 107 mg/dL (80-115); Potassium 4.2 mmol/L (3.5-5.1); Sodium 143 mmol/L (136-145)
[2022-04-29] MEDS ORDERED: Saccharomyces boulardii 250 MG CAP PO SCH (09:00)
[2022-04-29] MEDS: Pregabalin 50 MG CAP PO SCH ×2 (10:30→15:42)
[2022-04-29] MEDS: Aspirin Chewable 81 MG TAB PO SCH (10:31)
[2022-04-29] MEDS ORDERED: Vancomycin 25 MG/ML Oral SOLN PO SCH (11:00)
[2022-04-29 15:31] VITALS: BP 149/84; TEMP 97.7
[2022-05-03] MEDS ORDERED: BUPRENORPHINE TOP SCH (09:00)
== END 2022-04-29 16:00 | disposition home or self-care (01) ==
LOC: ERS 20:17 → ERHOLD 04-26 00:31 → 2NO 04-26 14:47
PROVIDERS: ADMIT Internal Medicine; ATTEND Internal Medicine
DX: A04.72 Enterocolitis due to Clostridium difficile, not specified as recurrent (principal); N39.0 Urinary tract infection, site not specified; G89.29 Other chronic pain; M54.9 Dorsalgia, unspecified; E87.6 Hypokalemia; R77.8 Other specified abnormalities of plasma proteins; I95.9 Hypotension, unspecified; I11.0 Hypertensive heart disease with heart failure; I50.32 Chronic diastolic (congestive) heart failure; K57.30 Diverticulosis of large intestine without perforation or abscess without bleeding; E78.5 Hyperlipidemia, unspecified; I25.10 Atherosclerotic heart disease of native coronary artery without angina pectoris; I69.351 Hemiplegia and hemiparesis following cerebral infarction affecting right dominant side; I08.1 Rheumatic disorders of both mitral and tricuspid valves; Z86.711 Personal history of pulmonary embolism; Z79.01 Long term (current) use of anticoagulants; Z79.82 Long term (current) use of aspirin; Z79.899 Other long term (current) drug therapy; Z91.013 Allergy to seafood; Z20.822 Contact with and (suspected) exposure to COVID-19
CPT/HCPCS: 71045; 74177; 80048 ×4; 80053; 82553; 83605; 83690; 84484 ×3; 85025 ×5; 87040; 87077; 87086; 87186; 87324; 87449; 87493; 93005; 93306; 96361; 96374; 96375 ×2; 96376 ×3; 99285; G0378 ×5; U0003; U0005; 36415; 81003; 81015; J0696; J2270; J2405; J3490; J7030; J7050; Q9967

== ENCOUNTER 2024-03-18 19:23 | Emergency (ER) | payer MEDICARE ==
[~2024-03-18 19:23] MED LIST changes: -Iopamidol-370 76% 500 ML 1 ML ONE; +Iopamidol-370 76% 500 ML MDV (1 ML CHARGE) ONE
[2024-03-18] MEDS ORDERED: Morphine 4 MG/ML VIAL ONE ×2 (20:21→23:11)
[2024-03-18] MEDS ORDERED: Pantoprazole 40 MG VIAL ONE (20:21)
[2024-03-18] MEDS ORDERED: Ondansetron PF 4 MG/2 ML Vial ONE (20:21)
[2024-03-18 20:25] LABS: #Basophils 0.06 10x3/uL (0.0-0.2); %Basophils 0.4 % (0.0-1.0); %Eosinophils 0.5 % (0.0-10.0); %Lymphocytes 14.2 % (21.0-51.0); %Monocytes 4.4 % (0.0-10.0); Hematocrit 48.9 % (36.0-47.0); Hemoglobin 16.8 g/dL (12.0-16.0); Mean Corpuscular HGB CONC 34.4 g/dL (32.0-36.0); Mean Corpuscular Hemoglobin 31.5 pg (27.0-31.0); Mean Corpuscular Volume 91.7 fL (78.0-98.0); Mean Platelet Volume 12.1 fL (7.4-10.4); Platelet Count 305 10x3/uL (130-400); RBC Distribution Width 13.2 % (11.5-14.5); Red Blood Cell (RBC) Count 5.33 mill/uL (4.20-5.40)
[2024-03-18 20:40] LABS: ALT (SGPT) 16 U/L (8-55); AST (SGOT) 32 U/L (5-34); Albumin 3.7 g/dL (3.4-4.8); Alkaline Phosphatase 105 U/L (40-110); Anion Gap 21 mmol/L (10-20); BUN (Urea Nitrogen) 15 mg/dL (9.8-20.1); Bilirubin, Total 1.1 mg/dL (0.2-1.2); Calc. Creatinine Clearance 0 mL/min (70-130); Carbon Dioxide 19 mmol/L (23-31); Chloride 106 mmol/L (98-107); Estimated GFR 63; Globulin 4.4 g/dL (2.4-3.5); Glucose 141 mg/dL (80-115); Lipase 19 U/L (8-78); Potassium 4.2 mmol/L (3.5-5.1); Protein, Total 8.1 g/dL (5.8-8.1); Sodium 142 mmol/L (136-145)
[2024-03-18 20:45] LABS: Troponin I Less than 0.010 ng/mL (< 0.028)
[2024-03-18 23:14] LABS: Bacteria/HPF None Seen HPF (None Seen); Bilirubin Negative (Negative); Blood, Urine Negative (Negative); CAUTI Indications for Culture Pelvic or flank pain; Clarity Clear (Clear); Glucose, Urine (Dipstick) Normal (Negative); Ketone, Urine Negative (Negative); Leukocyte 500 Leu/uL (Negative); Nitrite 1+ (Negative); Protein, Urine (Dipstick) 20 mg/dL (Neg-Trace); Specific Gravity, Urine 1.047 (1.002-1.036); Squamous Epithelial 0-3 HPF (0-3); Urobilinogen Normal mg/dL (Less than 2); WBC/HPF Greater than 50 HPF (0-3)
[2024-03-18 23:16] LABS: Urine Culture Reflex Yes Yes
[2024-03-18] MEDS ORDERED: cefTRIAXone (ROCEPHIN) 1 GM VIAL ONE (23:35)
[2024-03-18] MEDS ORDERED: Sodium Chloride 0.9% 100 ML ONE (23:35)
== END 2024-03-19 00:39 | disposition home or self-care (01) ==
LOC: ERS 19:23
DX: K29.71 Gastritis, unspecified, with bleeding (principal); N39.0 Urinary tract infection, site not specified; I11.0 Hypertensive heart disease with heart failure; I50.9 Heart failure, unspecified; I25.2 Old myocardial infarction; E78.5 Hyperlipidemia, unspecified; R19.7 Diarrhea, unspecified; Z86.73 Personal history of transient ischemic attack (TIA), and cerebral infarction without residual deficits; Z91.148 Patient's other noncompliance with medication regimen for other reason; Z86.711 Personal history of pulmonary embolism; Z79.899 Other long term (current) drug therapy; Z79.82 Long term (current) use of aspirin
CPT/HCPCS: 74177; 80053; 81001; 83690; 84484; 85025; 87077; 87086; 87186; 93005; 94760; 96365; 96375; 96376; 99284; C9113; J0696; J2270; J2405; J3490; Q9967

== ENCOUNTER 2024-06-26 15:16 | Emergency (ER) | payer MEDICARE ==
[2024-06-26 17:14] LABS: #Basophils 0.08 10x3/uL (0.0-0.2); %Basophils 0.4 % (0.0-1.0); %Eosinophils 0.2 % (0.0-10.0); %Lymphocytes 10.3 % (21.0-51.0); %Monocytes 5.8 % (0.0-10.0); %Neutrophils 82.7 % (42.0-75.0); Hematocrit 51.2 % (36.0-47.0); Hemoglobin 17.5 g/dL (12.0-16.0); Mean Corpuscular HGB CONC 34.2 g/dL (32.0-36.0); Mean Corpuscular Hemoglobin 30.8 pg (27.0-31.0); Mean Corpuscular Volume 90.1 fL (78.0-98.0); Mean Platelet Volume 11.6 fL (7.4-10.4); Platelet Count 339 10x3/uL (130-400); RBC Distribution Width 12.8 % (11.5-14.5); Red Blood Cell (RBC) Count 5.68 mill/uL (4.20-5.40)
[2024-06-26 17:39] LABS: ALT (SGPT) 16 U/L (8-55); AST (SGOT) 22 U/L (5-34); Albumin 3.9 g/dL (3.4-4.8); Alkaline Phosphatase 118 U/L (40-110); Anion Gap 17 mmol/L (10-20); BUN (Urea Nitrogen) 15 mg/dL (9.8-20.1); Calc. Creatinine Clearance 0 mL/min (70-130); Calcium 10.2 mg/dL (7.8-10.44); Carbon Dioxide 24 mmol/L (23-31); Chloride 103 mmol/L (98-107); Estimated GFR 67; Globulin 4.5 g/dL (2.4-3.5); Glucose 148 mg/dL (80-115); Lipase 13 U/L (8-78); Potassium 3.7 mmol/L (3.5-5.1); Protein, Total 8.4 g/dL (5.8-8.1); Sodium 140 mmol/L (136-145)
[2024-06-26] MEDS ORDERED: Ketorolac Tromethamine 30 MG (1 mL) VIAL ONE (18:06)
[2024-06-26] MEDS ORDERED: Ondansetron PF 4 MG/2 ML Vial ONE (18:06)
[2024-06-26 20:13] LABS: Bacteria/HPF None Seen HPF (None Seen); Bilirubin Negative (Negative); Blood, Urine 2+ (Negative); CAUTI Indications for Culture Pelvic or flank pain; Clarity Extra Turbid (Clear); Glucose, Urine (Dipstick) 50 mg/dL (Negative); Ketone, Urine 20 mg/dL (Negative); Leukocyte 500 Leu/uL (Negative); Nitrite Negative (Negative); Protein, Urine (Dipstick) 300 mg/dL (Neg-Trace); Specific Gravity, Urine 1.039 (1.002-1.036); Squamous Epithelial 21-50 HPF (0-3); Urobilinogen Normal mg/dL (Less than 2); WBC/HPF Greater than 50 HPF (0-3); pH, Urine 7.5 (5.0-9.0)
[2024-06-26 20:16] LABS: Urine Culture Reflex Yes Yes
== END 2024-06-26 20:50 | disposition home or self-care (01) ==
LOC: ERS 15:16
DX: K52.9 Noninfective gastroenteritis and colitis, unspecified (principal); I11.0 Hypertensive heart disease with heart failure; I50.9 Heart failure, unspecified
CPT/HCPCS: 74177; 80053; 81001; 83690; 85025; 87086; 96374; 96375; 99284; J1885; J2405; Q9967; 36415

== ENCOUNTER 2024-06-27 12:12 | Emergency (ER) | payer MEDICARE ==
[2024-06-27 12:41] LABS: #Basophils 0.08 10x3/uL (0.0-0.2); %Basophils 0.6 % (0.0-1.0); %Eosinophils 1.4 % (0.0-10.0); %Lymphocytes 21.6 % (21.0-51.0); %Monocytes 9.2 % (0.0-10.0); %Neutrophils 66.6 % (42.0-75.0); Hematocrit 47.3 % (36.0-47.0); Hemoglobin 15.9 g/dL (12.0-16.0); Mean Corpuscular HGB CONC 33.6 g/dL (32.0-36.0); Mean Corpuscular Hemoglobin 30.9 pg (27.0-31.0); Mean Platelet Volume 11.1 fL (7.4-10.4); Platelet Count 272 10x3/uL (130-400); RBC Distribution Width 12.9 % (11.5-14.5); Red Blood Cell (RBC) Count 5.14 mill/uL (4.20-5.40)
[2024-06-27 12:56] LABS: ALT (SGPT) 26 U/L (8-55); AST (SGOT) 38 U/L (5-34); Albumin 3.6 g/dL (3.4-4.8); Alkaline Phosphatase 109 U/L (40-110); Anion Gap 16 mmol/L (10-20); BUN (Urea Nitrogen) 24 mg/dL (9.8-20.1); Bilirubin, Total 1.3 mg/dL (0.2-1.2); Calc. Creatinine Clearance 0 mL/min (70-130); Calcium 9.1 mg/dL (7.8-10.44); Carbon Dioxide 20 mmol/L (23-31); Chloride 106 mmol/L (98-107); Estimated GFR 29; Globulin 4.1 g/dL (2.4-3.5); Glucose 136 mg/dL (80-115); Lipase 17 U/L (8-78); Potassium 3.8 mmol/L (3.5-5.1); Protein, Total 7.7 g/dL (5.8-8.1); Sodium 138 mmol/L (136-145)
== END 2024-06-27 16:44 | disposition home or self-care (01) ==
LOC: ERS 12:12
DX: E86.0 Dehydration (principal); R19.7 Diarrhea, unspecified; I11.0 Hypertensive heart disease with heart failure; I50.9 Heart failure, unspecified
CPT/HCPCS: 36415; 80053; 83605; 83690; 85025; 99284

== ENCOUNTER 2024-11-11 03:26 | Emergency (ER) | payer MEDICARE ==
[2024-11-11 04:16] LABS: #Basophils 0.04 10x3/uL (0.0-0.2); #Eosinophils Less than 0.03 10x3/uL (0.0-0.7); %Basophils 0.5 % (0.0-1.0); %Eosinophils 0.1 % (0.0-10.0); %Lymphocytes 12.3 % (21.0-51.0); %Monocytes 5.9 % (0.0-10.0); %Neutrophils 80.9 % (42.0-75.0); Hematocrit 35.3 % (36.0-47.0); Hemoglobin 11.6 g/dL (12.0-16.0); Mean Corpuscular HGB CONC 32.9 g/dL (32.0-36.0); Mean Corpuscular Hemoglobin 30.9 pg (27.0-31.0); Mean Corpuscular Volume 93.9 fL (78.0-98.0); Mean Platelet Volume 12.1 fL (7.4-10.4); Platelet Count 195 10x3/uL (130-400); RBC Distribution Width 13.3 % (11.5-14.5); Red Blood Cell (RBC) Count 3.76 mill/uL (4.20-5.40)
[2024-11-11 04:41] LABS: Troponin I 0.012 ng/mL (< 0.028)
[2024-11-11 04:48] LABS: ALT (SGPT) 8 U/L (Less than 34); AST (SGOT) 26 U/L (11-34); Albumin 3.3 g/dL (3.1-4.5); Alkaline Phosphatase 79 U/L (40-110); Anion Gap 15 mmol/L (10-20); BUN (Urea Nitrogen) 9 mg/dL (9.8-20.1); Bilirubin, Total 0.6 mg/dL (0.3-1.2); Calc. Creatinine Clearance 0 mL/min (70-130); Calcium 8.7 mg/dL (7.8-10.44); Carbon Dioxide 22 mmol/L (23-31); Chloride 110 mmol/L (98-107); Estimated GFR 67; Globulin 3.4 g/dL (2.4-3.5); Glucose 134 mg/dL (80-115); Potassium 3.8 mmol/L (3.5-5.1); Protein, Total 6.7 g/dL (5.8-8.1); Sodium 143 mmol/L (136-145)
== END 2024-11-11 05:09 | disposition home or self-care (01) ==
LOC: ERS 03:26
DX: I11.0 Hypertensive heart disease with heart failure (principal); I50.9 Heart failure, unspecified
CPT/HCPCS: 80053; 84484; 85025; 93005; 99283